=== PATIENT | female | born 1980 | race Caucasian/White ===

== ENCOUNTER 2018-02-01 18:24 | Observation (INO) ==
[2018-02-01] MEDS ORDERED: Furosemide 40 MG TABLET PO STA (19:37)
--- NOTE | 2018-02-01 19:48 | Emergency Department Note ---
Disposition Clinical Impression: Hypokalemia, Generalized weakness Disposition: Admitted As Inpatient Condition: Good Forms: ED Satisfaction Letter Extremity Problem HPI - General Chief complaint: ED Extremity Problem,Nontraumatic Stated complaint: "swelling in legs came by [id number]" Time Seen by Provider: 02/01/18 19:10 Source: patient, family Limitations: no limitations Nursing Notes Reviewed: Yes Vital Signs Reviewed: Yes - History of Present Illness HPI Narrative: Patient presents today for evaluation of increased swelling of the extremities including upper and lower extremities as well as generalized weakness and fatigue. She presents from the [facility] where she was recently placed secondary to probation. She is upset and anxious on evaluation secondary to stating that she does not take any recreational drugs and that her urine falsely test positive and is usually to clear secondary to her continued Lasix use. She denies shortness of breath or her chest pain. She states that she does have underlying anxiety and is felt that this is been getting worse and she has been at the [facility]. She is not given her medications for what she describes as an unknown reason but does not understand how the patient with her history of congestive heart failure to be allowed to not get her daily medicine. 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 Swelling started just after she missed her most recent medications. We will check some baseline labs labs and further evaluate. Pain Scale: 0 - Related Data Home Medications Medication Instructions Recorded Confirmed Carvedilol [Coreg] 9.375 mg PO BID 08/15/17 01/20/18 Furosemide [Lasix] 20 mg PO DAILY 08/15/17 01/20/18 Lisinopril [Zestril] 5 mg PO HS 08/15/17 01/20/18 Pregabalin [Lyrica] 150 mg PO BID 01/12/18 01/20/18 Trazodone HCl [Trazodone HCl] 100 mg PO DAILY 01/20/18 01/20/18 Previous Rx's Medication Instructions Recorded Acetaminophen/Butalbital/Caffe 1 - 2 each PO BID PRN #10 tablet 01/20/18 [Fioricet] Allergies Allergy/AdvReac Type Severity Reaction Status Date / Time Erythromycin Base Allergy Vomiting Verified 01/20/18 18:04 metoclopramide [From Reglan] Allergy See Verified 01/20/18 18:04 Comments Neomycin Allergy Vomiting Verified 01/20/18 18:04 captopril [From Capoten] AdvReac Difficulty Verified 01/20/18 18:04 Breathing ciprofloxacin AdvReac Nausea Verified 01/20/18 18:04 clarithromycin [From Biaxin] AdvReac Vomiting Verified 01/20/18 18:04 Iodinated Contrast- Oral and AdvReac Difficulty Verified 01/20/18 18:04 IV Dye Swallowing [Iodinated Contrast Media - Oral and] nitroglycerin AdvReac Difficulty Verified 01/20/18 18:04 Swallowing Review of Systems: CONSTITUTIONAL: Generalized weakness HEENT: Eyes: No visual changes. Ears, Nose, Throat: No hearing loss, difficulty talking or unable to swallow. SKIN: No rash or itching. CARDIOVASCULAR: No chest pain, chest pressure or chest discomfort. No palpitations or edema. RESPIRATORY: No shortness of breath, cough or sputum. GASTROINTESTINAL: No anorexia, nausea, vomiting or diarrhea. No abdominal pain or blood. GENITOURINARY: No burning on urination or hematuria. NEUROLOGICAL: No headache, dizziness, syncope, paralysis, ataxia, numbness or tingling in the extremities. No change in bowel or bladder control. MUSCULOSKELETAL: Increased swelling of the upper and lower extremities. No muscle pain, back pain, joint pain or stiffness. Past Medical History - Past Medical History Medical history: Reports: cardiomyopathy, migraine, other Surgical history: Reports: orthopedic, other, pacemaker/AICD, other Psychiatric history: Reports: anxiety, depression DIRECTOR OF GLOBAL TALENT history: Reports: no DIRECTOR OF GLOBAL TALENT history - Social History Smoking Status: Current every day smoker Smokeless Tobacco Status: No Alcohol use: Reports: none Drug use: Reports: none Physical Exam General appearance: NAD, conversant Eyes: anicteric sclerae, moist conjunctivae; no lid-lag; PERRL HENT: Atraumatic; oropharynx clear with moist mucous membranes Neck: Normal appearance; Trachea midline Chest: Symmetrical chest rise; No respiratory distress Cardiac: Regular rate and rhythm without murmur rub or gallop Lungs: Clear to auscultation bilaterally Extremities: +1 pitting edema to the upper and lower extremities. No significant tenderness to the posterior aspect of the legs. Skin: Normal temperature, turgor and texture; no rash, ulcers or subcutaneous nodules Psych: Appropriate mood and affect Neuro: Awake and alert - General Limitations: no limitations General appearance: alert, in no apparent distress Course - Reevaluation(s) Reevaluation #1: Critical lab reported a potassium of 2.4. Initial potassium of 40 mEq by mouth has been ordered. Patient will now get IV potassium as well as further laboratory investigation including magnesium. - Consultations Consultation #1: Discussed with hospitalist. Patient accepted for admission. Vital Signs Temperature 98.0 F 02/01/18 18:34 Pulse Rate 93 02/01/18 18:34 Respiratory Rate 20 02/01/18 18:34 Blood Pressure 144/86 02/01/18 18:34 O2 Sat by Pulse Oximetry 95 02/01/18 18:34 Temperature 98.0 F 02/01/18 18:34 Pulse Rate 93 02/01/18 18:34 Respiratory Rate 20 02/01/18 18:34 Blood Pressure 128/75 02/01/18 21:22 O2 Sat by Pulse Oximetry 95 02/01/18 18:34 Oxygen Delivery Oxygen Delivery Room Air Extremity Problem, Nontraumati - Medical Records Medical records reviewed: Yes I reviewed the patient's medical records. - Lab Data Lab results reviewed: Yes I reviewed the patient's lab results. Result diagrams: 02/01/18 20:46 Lab Results 02/01/18 Range/Units 20:46 Sodium 138 (136-145) mEq/L Potassium 2.4 L* (3.5-5.1) mEq/L Chloride 97 L (98-107) mEq/L Carbon Dioxide 33 H (23-29) mEq/L BUN 30 H (6-20) mg/dL Creatinine 1.01 (0.60-1.20) mg/dL Est GFR ( Amer) > 60 (> 60) Est GFR (Non-Af Amer) > 60 (> 60) BUN/Creatinine Ratio 30 H (6-26) Glucose 104 (70-105) mg/dL Calculated Osmolality 292 (280-300) Calcium 9.0 (8.6-10.3) mg/dL - Radiology Data Radiology results reviewed: Yes I reviewed the patient's radiology results. - EKG Data EKG attestation: Yes I reviewed and interpreted this EKG. EKG results narrative: EKG shows sinus rhythm with ventricular rate of 90. WA interval 169. QRS 96. QTC 427. Patient has no significant ST elevations or depressions. No previous EKG at this time for comparison.
[2018-02-01 21:20] LABS: BUN/Creatinine Ratio 30 (6-26); Blood Urea Nitrogen 30 mg/dL (6-20); Carbon Dioxide 33 mEq/L (23-29); Chloride 97 mEq/L (98-107); Glucose 104 mg/dL (70-105); Osmolality,Calculated 292 (280-300); Potassium 2.4 mEq/L (3.5-5.1); Sodium 138 mEq/L (136-145); eGFR For Non-African Americans > 60 (> 60)
[2018-02-01 21:58] LABS: Basophils % 0.5 %; Eosinophils # 0.3 K/mcL (0.0-0.6); Eosinophils % 4.2 %; Hematocrit 37.5 % (35.3-44.9); Hemoglobin 12.6 g/dL (11.5-15.4); Immature Granulocytes % 0.2 % (0-4); Lymphocytes # 2.3 K/mcL (0.6-4.6); Lymphocytes % 38.7 %; Mean Corpuscular HGB Conc 33.6 g/dL (31.6-35.5); Mean Corpuscular Hemoglobin 29.6 pg (28.0-33.3); Mean Platelet Volume 11.8 fL (9.4-12.4); Monocytes # 0.6 K/mcL (0.0-1.3); Monocytes % 9.7 %; Neutrophils # 2.8 K/mcL (1.6-8.9); Platelet Count 184 K/mcL (140-400); Red Blood Count 4.26 M/mcL (3.82-4.97); Red Cell Distribution Width 13.7 % (11.5-14.5); Segmented Neutrophils % 46.7 %
[2018-02-01 22:09] LABS: Magnesium 1.9 mg/dL (1.6-2.6); Troponin I < 0.03 ng/mL (< 0.04)
--- NOTE | 2018-02-02 00:19 | Internal Med History&Physical ---
Date of Encounter: 02/02/18 Time of Encounter: 00:10 Internal Medicine - H&P: HPI Chief complaint: Generalized swelling Admitted From: Emergency Dept Plans for Post Hospital Care: Home History of present illness: Ms. Barlow is a 37 year old female with past medical history of cardiomyopathy, rhabdomyosarcoma presented to [facility] ED complaining of generalized swelling of one day. She is on probation and is currently residing in a half-way that she moved to today. She stated that the people that run the home did not give her Lasix to her all day and over the course of the day she has noticed increase swelling on her upper and lower extremities. Her dry weight is 193 pounds which she was yesterday and today she is 203 pounds. Her PCP started her on 20mg potassium supplements last week when it was noticed her potassium was 2.8. She sees Jacklyn Banuelos SPLITTER MACHINE in the tire and tube repairer office who increased her lasix on Monday since she had been retaining fluid. She denies fever, chills, shortness of breath, chest pain, palpitations, abdominal pain, nausea, vomiting, dysuria. She chronically has orthopnea and paroxysmal nocturnal dyspnea. She quit smoking 2 weeks ago and she was smoking 5 cigarettes a day for 6years. Denied alcohol and drug use. She is a full code. 04/2017 TTE: EF 40-45%, mild mitral and tricuspid regurgitation. In the Ed, her potassium 2.4, magnesium 1.9, sodium 138, WBC 5.9, Hgb 12.6, creatinine 1.01, troponin negative. EKG: NSR HR 90, no ST changes, flattened T waves. She was given 40mg IV and PO potassium, lasix 40mg IV. Past Med Surg Social Fam HX - Past Medical History Attestation: Yes The following information was validated with the patient. 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 cardiomyopathy Psychiatric history: anxiety, depression - Past Surgical History Surgical History: orthopedic, other, pacemaker/AICD, other Additional surgical history: Left arm lymph nodes. Pace AED at age 19. Left ovary removed for cancer. Breast reduction. Endometreosis. pacemaker removed. Gallbladder removed - Social History Smoking Status: Former smoker Packs per day: 0.5 Smokeless Tobacco Status: No Alcohol use: none Drug use: none Internal Medicine - H&P: Meds Carvedilol [Coreg] 6.25 mg PO BID 08/15/17 [History] Lisinopril [Zestril] 5 mg PO HS 08/15/17 [History] Trazodone HCl [Trazodone HCl] 100 mg PO DAILY PRN 01/20/18 [History] Acetaminophen/Butalbital/Caffe [Fioricet] 1 tab PO DAILY PRN 02/01/18 [History] Furosemide [Lasix] 40 mg PO 1700,2100 02/01/18 [History] Furosemide [Lasix] 80 mg PO QAM 02/01/18 [History] Loratadine [Claritin] 10 mg PO DAILY 02/01/18 [History] Potassium Chloride [K-Tab ER] 20 meq PO DAILY 02/01/18 [History] 3 Allergy/AdvReac Type Severity Reaction Status Date / Time Erythromycin Base Allergy Vomiting Verified 01/20/18 18:04 metoclopramide [From Reglan] Allergy See Verified 01/20/18 18:04 Comments Neomycin Allergy Vomiting Verified 01/20/18 18:04 captopril [From Capoten] AdvReac Difficulty Verified 01/20/18 18:04 Breathing ciprofloxacin AdvReac Nausea Verified 01/20/18 18:04 clarithromycin [From Biaxin] AdvReac Vomiting Verified 01/20/18 18:04 Iodinated Contrast- Oral and AdvReac Difficulty Verified 01/20/18 18:04 IV Dye Swallowing [Iodinated Contrast Media - Oral and] nitroglycerin AdvReac Difficulty Verified 01/20/18 18:04 Swallowing All Systems PM: A 10-system review of systems was performed and is negative for pertinent findings except as documented above in the HPI. - Constitutional Constitutional: weight gain, no chills, no fever(s), no falls, no weakness - EENT Eyes: no change in vision - Cardiovascular Cardiovascular ROS IM: edema, orthopnea, paroxysmal nocturnal dyspnea, no chest pain, no diaphoresis, no dyspnea on exertion, no palpitations, no syncope - Respiratory Respiratory: no cough, no dyspnea, no wheezing - Gastrointestinal Gastrointestinal: no abdominal pain, no melena, no nausea, no vomiting - Musculoskeletal Musculoskeletal ROS IM: no arthralgias - Integumentary Integumentary IM: no erythema, no new lesions - Neurological Neurological ROS: headache(s), no dizziness - Psychiatric Psychiatric: no confusion - Endocrine Endocrine IM: no fatigue - Constitutional Vitals: Temp Pulse Resp BP Pulse Ox 97.6 F 79 16 120/91 99 02/01/18 23:18 02/01/18 23:18 02/01/18 23:18 02/01/18 23:18 02/01/18 23:18 General appearance: Present: A&O X 3, pleasant, no acute distress - Head Head exam: Present: atraumatic, normal inspection - Eye Eye exam: Present: normal appearance, conjuntiva pink - Respiratory Respiratory exam: Present: CTAB. Absent: rales, rhonchi, wheezes - Cardiovascular Cardiovascular exam: Present: RRR, +S1, +S2, systolic murmur - GI/Abdominal GI/Abdominal exam: Present: normal bowel sounds, soft. Absent: firm, guarding, tenderness - Expanded Lower Extremities Exam Lower Leg exam: Present: swelling (non pitting), tenderness (bilateral). Absent : ecchymosis, erythema, laceration - Neurological Exam Neurological exam: Present: alert, oriented X3 - Psychiatric Psychiatric exam: Present: normal affect, normal mood - Skin Skin exam: Present: dry, intact Internal Med - H&P Results - Labs CBC & Chem 7: 02/01/18 20:46 02/01/18 20:46 - Assessment and plan (1) Generalized edema Current Visit: Yes Status: Acute Assessment and plan: Generalized edema in legs and arms secondary to cardiomyopathy and she is on probation in a half-way and the people running it did not give all her doses of lasix. In ED lasix 40mg IV given. No shortness of breath, chest pain. Dry weight is 193lb and was that yesterday and today 203lb. She reported improvement of swelling upon my examination since receiving lasix in ED. On Monday her lasix doses and frequency was increased. troponin negative -will give 40mg IV lasix in AM -daily weights -monitor I&O -monitor renal function and electrolytes (2) Hypokalemia Current Visit: Yes Status: Acute Assessment and plan: hypokalemia secondary to diuretics. She was given 40mg IV and PO potassium in ED. -EKG: NSR HR 90, no ST changes, flattened T waves. 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 Follows with Kirsten Banuelos NP in the cardiology office. 04/2017 TTE: EF 40-45%, mild mitral and tricuspid regurgitation. Qualifiers: Cardiomyopathy type: other Qualified Code(s): I42.8 - Other cardiomyopathies (4) DVT prophylaxis Current Visit: Yes Status: Acute Assessment and plan: ambulate TID - Time Spent With Patient Total time spent is greater than 50% in coordination of care (as documented) at patient's floor/unit and/or counseling patient:
[2018-02-02] MEDS ORDERED: Naloxone 0.4 MG/ML INJ IVP PRN (00:20)
[2018-02-02 05:35] LABS: BUN/Creatinine Ratio 27 (6-26); Blood Urea Nitrogen 24 mg/dL (6-20); Calcium 8.4 mg/dL (8.6-10.3); Carbon Dioxide 32 mEq/L (23-29); Chloride 102 mEq/L (98-107); Glucose 99 mg/dL (70-105); Magnesium 1.9 mg/dL (1.6-2.6); Osmolality,Calculated 296 (280-300); Potassium 3.1 mEq/L (3.5-5.1); Sodium 141 mEq/L (136-145); eGFR For Non-African Americans > 60 (> 60)
[2018-02-02] MEDS: Ibuprofen 600 MG TABLET PO PRN ×2 (08:47→17:43)
[2018-02-02] MEDS ORDERED: Furosemide 40 MG/4 ML VIAL IVP SCH (09:00)
[2018-02-02] MEDS: Acetaminophen 325 MG TABLET PO PRN (12:13)
[2018-02-02 15:49] LABS: Albumin 3.4 g/dL (3.5-5.7); Albumin/Globulin Ratio 1.1 (1.1-2.2); Bilirubin,Direct 0.1 mg/dL (0.0-0.2); Bilirubin,Indirect 0.2 mg/dL (0.0-1.2); Bilirubin,Total 0.3 mg/dL (0.3-1.0); Globulin 3.2 g/dL (2.4-3.5); Total Protein 6.6 g/dL (6.4-8.9)
--- NOTE | 2018-02-02 16:35 | Electrocardiograph Report ---
[place] [id number] Test Date: 2018-02-01 Pat Name: Sari Barlow Department: 104 Room: [facility] Gender: F Parent Aide: : 1980 Requested By: Nomi Kaminski Order Number: [id number] Reading MD: Nash Solano Measurements Intervals [place] Rate: 90 P: 49 NM: 169 QRS: 20 QRSD: 96 T: 35 QT: 379 QTc: 427 Interpretive Statements SINUS RHYTHM POSSIBLE LEFT ATRIAL ENLARGEMENT NONSPECIFIC T-WAVE ABNORMALITY Electronically Signed On 02-02-2018 16:33:46 EDT by Nash Solano
[2018-02-03 04:31] LABS: Bilirubin,Urine Negative (Negative); Blood,Urine Negative (Negative); Clarity,Urine Clear (Clear); Color,Urine Yellow (Yellow); Glucose,Urine (UA) Normal (Normal); Ketones,Urine Negative (Negative); Leukocyte Esterase,Urine Negative (Negative); Nitrite,Urine Negative (Negative); PH,Urine 6.5 pH Units (5.0-8.0); Protein,Urine Negative (Neg-Trace); Specific Gravity,Urine 1.019 (1.010-1.025); Urobilinogen,Urine Normal (Normal)
[2018-02-03 06:15] LABS: BUN/Creatinine Ratio 26 (6-26); Blood Urea Nitrogen 23 mg/dL (6-20); Calcium 8.9 mg/dL (8.6-10.3); Carbon Dioxide 30 mEq/L (23-29); Chloride 105 mEq/L (98-107); Glucose 96 mg/dL (70-105); Osmolality,Calculated 294 (280-300); Potassium 3.8 mEq/L (3.5-5.1); Sodium 140 mEq/L (136-145); eGFR For Non-African Americans > 60 (> 60)
[2018-02-03] MEDS: Ibuprofen 600 MG TABLET PO PRN (06:17)
[2018-02-03] MEDS ORDERED: metOLazone 5 MG TABLET PO SCH (09:00)
[2018-02-03] MEDS ORDERED: Furosemide 40 MG TABLET PO SCH (09:00)
--- NOTE | 2018-02-03 10:33 | Discharge Summary ---
- NOTES TO OUTPATIENT PROVIDER Notes to Outpatient Provider: Follow with shield operator for dose adjustment of diuretic-in 1 week. Follow-up with PCP 2- 3 days. BMP on Monday Date of Encounter: 02/03/18 Time of Encounter: 11:11 - Discharge Diagnosis (1) Generalized edema Priority: Primary Status: Acute Assessment and Plan: Significant improvement . Initially he got treated with IV Lasix then change to oral Lasix and started Zaroxolyn 5 mg daily. Potassium 20 mEq 3 times in a day was also given and that improved level significantly. Generalized edema in legs and arms secondary to cardiomyopathy and she is on probation in a snf and the people running it did not give all her doses of lasix. I discussed the discharge plan with on-call shield operator Dr. Chaitanya hua about discharge medication and after discussing in length we decided to keep her regime simple and advised to resume home dose of Lasix but increase potassium 20 mEq twice a day with repeat BMP on Monday and follow report with PCP Further diuretic adjustment as per cardiology advice. Follow with cardiology within 1 week. Follow-up PCP in 2-3 days (2) Hypokalemia Priority: Primary Status: Acute Assessment and Plan: Improved. hypokalemia secondary to diuretics. 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 Follows with Kirsten Banuelos NP in the cardiology office. 04/2017 TTE: EF 40-45%, mild mitral and tricuspid regurgitation. Qualifiers: Cardiomyopathy type: other Qualified Code(s): I42.8 - Other cardiomyopathies Hospital course: Ms. Barlow is a 37 year old female with history of cardiomyopathy got admitted for anasarca as she missed diuretic for 2 days. In the hospital she responded well to the treatment. Discussed discharge plan with on-call shield operator. Patient is clinically stable with significant reduction in pedal edema and normal potassium level. Will discharge patient on home dose of Lasix and increase KCl 20 mEq twice a day for a few days and repeat BMP on Monday for follow-up with PCP into 3 days for further adjustment in potassium and diuretic level. Patient is discharged back to snf under stable condition. Please see details in diagnosis section. Discharge discussed with: patient - Time Spent with Patient Total time spent providing and/or coordinating discharge services: - Discharge Medications Prescriptions: metOLazone [Zaroxolyn] 5 mg PO DAILY #30 tablet Home Medications: Carvedilol [Coreg] 6.25 mg PO BID 08/15/17 [History] Lisinopril [Zestril] 5 mg PO HS 08/15/17 [History] Trazodone HCl [Trazodone HCl] 100 mg PO DAILY PRN 01/20/18 [History] Acetaminophen/Butalbital/Caffe [Fioricet] 1 tab PO DAILY PRN 02/01/18 [History] Furosemide [Lasix] 40 mg PO 1700,2100 02/01/18 [History] Furosemide [Lasix] 80 mg PO QAM 02/01/18 [History] Loratadine [Claritin] 10 mg PO DAILY 02/01/18 [History] Potassium Chloride [K-Tab ER] 20 meq PO DAILY 02/01/18 [History] metOLazone [Zaroxolyn] 5 mg PO DAILY #30 tablet 02/03/18 [Rx] Allergies/Adverse Reactions: 3 Allergy/AdvReac Type Severity Reaction Status Date / Time Erythromycin Base Allergy Vomiting Verified 01/20/18 18:04 metoclopramide [From Reglan] Allergy See Verified 01/20/18 18:04 Comments Neomycin Allergy Vomiting Verified 01/20/18 18:04 captopril [From Capoten] AdvReac Difficulty Verified 01/20/18 18:04 Breathing ciprofloxacin AdvReac Nausea Verified 01/20/18 18:04 clarithromycin [From Biaxin] AdvReac Vomiting Verified 01/20/18 18:04 Iodinated Contrast- Oral and AdvReac Difficulty Verified 01/20/18 18:04 IV Dye Swallowing [Iodinated Contrast Media - Oral and] nitroglycerin AdvReac Difficulty Verified 01/20/18 18:04 Swallowing Date of admission: 02/01/18 22:47 Primary care physician: Greg Ackerman CNP - Constitutional Vitals: Temp Pulse Resp BP Pulse Ox 98.4 F 79 16 134/89 99 02/03/18 07:28 02/03/18 07:28 02/03/18 07:28 02/03/18 07:28 07/28/18 07:28 General appearance: Present: A&O X 3, pleasant, no acute distress Exam: General appearance: No acute distress, A&O X 3 Head exam: Atraumatic Eye exam: EOMI, PERRLA ENT exam: Moist oral mucosa Neck nontender, supple Respiratory exam: Clear to auscultation bilaterally Cardiovascular exam: Regular rate and rhythm, no systolic murmur Abdominal exam: Soft, nontender, nondistended, positive bowel sounds Extremities exam: No calf tenderness, +1 pedal edema Present: Skin-no rash, warm, dry, intact Neurological exam: Alert, awake, oriented 3, CN II-XII intact, no focal deficits. No facial droop. Normal speech. Normal gait. - Patient Status Disposition: Transfer Other Condition: Good Overall status at discharge: patient is back to baseline - Discharge Instructions Instructions: Metolazone (By mouth), Hypokalemia (DC) Follow Up With: Greg Ackerman, ANIMAL HUMANE AGENT SUPERVISOR [Primary Care Provider] - - Diet and Activity Activity: increase activity as tolerated Diet: low fat, low cholesterol, low salt diet
[2018-02-03 10:46] VITALS: BP 128/81
[2018-02-03] MEDS: Acetaminophen 325 MG TABLET PO PRN (11:52)
== END 2018-02-03 12:55 | disposition other institution (70) ==
LOC: EMEROO 18:24 → 2ANU 18:24 → SUATTDRO 22:47 → 2ANU 23:12
PROVIDERS: ADMIT Family Medicine; ATTEND Internal Medicine

== ENCOUNTER 2018-03-14 12:23 | Inpatient (IN) ==
--- NOTE | 2018-03-14 12:34 | Emergency Department Note ---
Disposition Clinical Impression: Hypokalemia, Syncope and collapse Facial contusion Qualifiers: Encounter type: initial encounter Qualified Code(s): S00.83XA - Contusion of other part of head, initial encounter Disposition: Admitted As Inpatient Condition: Fair General Adult HPI - General Chief complaint: ED Syncope Stated complaint: Syncopal Episode Time Seen by Provider: 03/14/18 12:26 Source: patient, EMS Mode of arrival: EMS Limitations: no limitations Nursing Notes Reviewed: Yes Vital Signs Reviewed: Yes - History of Present Illness HPI Narrative: 37-year-old female with significant past medical history of cardiomyopathy and history of hypokalemia presenting to the emergency department with chief complaint of a syncopal episode. According to the patient she was seen being at a bus stop when she passed out. This was witnessed by 2 other bystanders. He states she was out for approximately 1 minute. Patient denies any shortness of breath, dizziness or chest pain prior to syncopized and. At this time patient has no chest pain, dizziness, shortness of breath or other symptoms. Patient states she currently takes to diuretics 1 including Lasix, the other she is on aware of the name. She states she has had hypokalemia in the past and is concerned that this is what is going on again. Any recent illnesses or fevers. - Related Data Home Medications Medication Instructions Recorded Confirmed Carvedilol [Coreg] 9.375 mg PO BID 08/15/17 03/14/18 Lisinopril [Zestril] 5 mg PO HS 08/15/17 03/14/18 Trazodone HCl 100 mg PO DAILY PRN 01/20/18 03/14/18 Acetaminophen/Butalbital/Caffe 1 tab PO DAILY PRN 02/01/18 03/14/18 [Fioricet] Furosemide [Lasix] 40 mg PO 1700,2100 02/01/18 03/14/18 Furosemide [Lasix] 80 mg PO QAM 02/01/18 03/14/18 Loratadine [Claritin] 10 mg PO DAILY 02/01/18 03/14/18 Pregabalin [Lyrica] 150 mg PO BID 03/14/18 03/14/18 Previous Rx's Medication Instructions Recorded Potassium Chloride [K-Tab ER] 20 meq PO DAILY #30 tablet.er 02/03/18 Allergies Allergy/AdvReac Type Severity Reaction Status Date / Time Erythromycin Base Allergy Vomiting Verified 01/20/18 18:04 metoclopramide [From Reglan] Allergy See Verified 01/20/18 18:04 Comments Neomycin Allergy Vomiting Verified 01/20/18 18:04 captopril [From Capoten] AdvReac Difficulty Verified 01/20/18 18:04 Breathing ciprofloxacin AdvReac Nausea Verified 01/20/18 18:04 clarithromycin [From Biaxin] AdvReac Vomiting Verified 01/20/18 18:04 Iodinated Contrast- Oral and AdvReac Difficulty Verified 01/20/18 18:04 IV Dye Swallowing [Iodinated Contrast Media - Oral and] nitroglycerin AdvReac Difficulty Verified 01/20/18 18:04 Swallowing All systems ED: reviewed and negative except as stated. Constitutional: Denies: fever, chills Eyes: Reports: as per HPI ENT ED: Reports: as per HPI Cardiovascular: Denies: chest pain, palpitations, dyspnea on exertion Respiratory: Denies: cough, dyspnea, wheezes Gastrointestinal: Denies: abdominal pain, nausea, vomiting Genitourinary: Reports: as per HPI Musculoskeletal: Reports: as per HPI Integumentary: Reports: as per HPI Neurological: Denies: weakness, numbness, paresthesias Psychiatric: Reports: as per HPI Endocrine: Reports: as per HPI Hematological/Lymphatic: Reports: as per HPI Allergic/Immunologic: Reports: as per HPI Past Medical History - Past Medical History Attestation: Yes The following information was validated with the patient. 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 Absent: scleral icterus, conjunctival injection - ENT ENT exam: normal exam, mucous membranes moist - Neck Neck exam: Present: normal inspection, full ROM. Absent: tenderness, meningismus - Chest Chest inspection: Present: normal inspection, symmetric chest wall rise. Absent : tenderness, rash - Respiratory Respiratory exam: Present: normal lung sounds bilaterally. Absent: respiratory distress, wheezes - Cardiovascular Cardiovascular exam: Present: regular rate, normal rhythm, normal heart sounds - Abdominal Exam Abdominal exam: Present: soft, Non-Tender. Absent: distention, guarding, rebound - Extremities Exam Extremities exam: Present: normal inspection, full ROM - Neurological Exam Neurological exam: Present: alert, oriented X3, normal gait - Psychiatric Psychiatric exam: Present: normal affect, normal mood - Skin Skin exam: Present: warm, intact Course Course Narrative: 37-year-old female presenting to the emergency department with chief complaint of syncope. Patient is alert and oriented 3 in the room with stable vital signs at this time. Due to patient's history of hypokalemia and syncope we will obtain basic laboratory analysis including EKG, troponin, CBC, CMP and CT of the head. Disposition pending results. Patient agrees with this plan. - Reevaluation(s) Reevaluation #1: Patient CT of the head within normal limits. BMP shows hypokalemia at 2.2. Magnesium within normal limits. We will replete the patient through peripheral IV and oral. At this time will plan to admit the patient for further evaluation for her hypokalemia and syncope. Patient is alert and oriented times three with stable vital signs the patient agrees with this plan. I spoke with the hospitalist occupational therapy co director Dr. Valadez who agrees to accept the patient at this time. Vital Signs Temperature 98.2 F 03/14/18 12:27 Pulse Rate 95 03/14/18 12:27 Respiratory Rate 16 03/14/18 12:27 Blood Pressure 133/80 03/14/18 12:27 O2 Sat by Pulse Oximetry 95 03/14/18 12:27 Temperature 98.2 F 03/14/18 12:27 Pulse Rate 95 03/14/18 12:27 Respiratory Rate 16 03/14/18 12:27 Blood Pressure 133/80 03/14/18 12:27 O2 Sat by Pulse Oximetry 95 03/14/18 12:27 Oxygen Delivery Oxygen Delivery Room Air Medical Decision Making - Lab Data Result diagrams: 03/14/18 12:49 03/14/18 12:49 Lab Results 03/14/18 03/14/18 03/14/18 Range/Units 12:35 12:49 12:49 WBC 9.4 (4.3-11.1) K/mcL RBC 4.96 (3.82-4.97) M/mcL Hgb 14.8 (11.5-15.4) g/dL Hct 43.1 (35.3-44.9) % MCV 86.9 (83.0-100.0) fL MCH 29.8 (28.0-33.3) pg MCHC 34.3 (31.6-35.5) g/dL RDW 13.8 (11.5-14.5) % Plt Count 221 (140-400) K/mcL MPV 10.8 (9.4-12.4) fL Immature Gran % 0.3 (0-4) % Seg Neutrophils % 78.9 % Lymphocytes % 17.5 % Monocytes % 2.8 % Eosinophils % 0.4 % Basophils % 0.1 % Neutrophils # 7.5 (1.6-8.9) K/mcL Lymphocytes # 1.7 (0.6-4.6) K/mcL Monocytes # 0.3 (0.0-1.3) K/mcL Eosinophils # 0.0 (0.0-0.6) K/mcL Basophils # 0.0 (0.0-0.2) K/mcL Sodium 137 (136-145) mEq/L Potassium 2.2 L* (3.5-5.1) mEq/L Chloride 86 L (98-107) mEq/L Carbon Dioxide 42 H* (23-29) mEq/L BUN 37 H (6-20) mg/dL Creatinine 0.94 (0.60-1.20) mg/dL Est GFR ( Amer) > 60 (> 60) Est GFR (Non-Af Amer) > 60 (> 60) BUN/Creatinine Ratio 39 H (6-26) Glucose 117 H (70-105) mg/dL POC Glucose 126 H (70-99) mg/dL Calculated Osmolality 294 (280-300) Calcium 9.2 (8.6-10.3) mg/dL Magnesium 1.8 (1.6-2.6) mg/dL Total Bilirubin 0.9 (0.3-1.0) mg/dL AST 197 H (13-39) Units/L ALT 137 H (7-52) Units/L Alkaline Phosphatase 81 (34-104) Units/L Troponin I < 0.03 (< 0.04) ng/mL Serum Total Protein 7.2 (6.4-8.9) g/dL Albumin 4.0 (3.5-5.7) g/dL Globulin 3.2 (2.4-3.5) g/dL Albumin/Globulin Ratio 1.3 (1.1-2.2) - EKG Data EKG #1 EKG attestation: Yes I reviewed and interpreted this EKG. EKG results narrative: Sinus rhythm. 97 beats for minute. WA interval 166, QRS 95, QTC 467. No sign of acute ST segment elevation or ischemia. Compared to previous EKG completed on 02/01/2018 no significant changes noted
[2018-03-14 13:01] LABS: Basophils % 0.1 %; Eosinophils % 0.4 %; Hematocrit 43.1 % (35.3-44.9); Hemoglobin 14.8 g/dL (11.5-15.4); Immature Granulocytes % 0.3 % (0-4); Lymphocytes % 17.5 %; Mean Corpuscular HGB Conc 34.3 g/dL (31.6-35.5); Mean Corpuscular Hemoglobin 29.8 pg (28.0-33.3); Mean Corpuscular Volume 86.9 fL (83.0-100.0); Mean Platelet Volume 10.8 fL (9.4-12.4); Monocytes % 2.8 %; Platelet Count 221 K/mcL (140-400); Red Blood Count 4.96 M/mcL (3.82-4.97); Red Cell Distribution Width 13.8 % (11.5-14.5); Segmented Neutrophils % 78.9 %
[2018-03-14 13:02] LABS: Lymphocytes # 1.7 K/mcL (0.6-4.6); Monocytes # 0.3 K/mcL (0.0-1.3); Neutrophils # 7.5 K/mcL (1.6-8.9)
[2018-03-14 13:28] LABS: Troponin I < 0.03 ng/mL (< 0.04)
[2018-03-14 13:43] LABS: Alanine Aminotransferase 137 Units/L (7-52); Albumin/Globulin Ratio 1.3 (1.1-2.2); Alkaline Phosphatase 81 Units/L (34-104); Aspartate Amino Transferase 197 Units/L (13-39); BUN/Creatinine Ratio 39 (6-26); Bilirubin,Total 0.9 mg/dL (0.3-1.0); Blood Urea Nitrogen 37 mg/dL (6-20); Calcium 9.2 mg/dL (8.6-10.3); Carbon Dioxide 42 mEq/L (23-29); Chloride 86 mEq/L (98-107); Globulin 3.2 g/dL (2.4-3.5); Glucose 117 mg/dL (70-105); Osmolality,Calculated 294 (280-300); Potassium 2.2 mEq/L (3.5-5.1); Sodium 137 mEq/L (136-145); Total Protein 7.2 g/dL (6.4-8.9); eGFR For Non-African Americans > 60 (> 60)
[2018-03-14 14:22] LABS: Magnesium 1.8 mg/dL (1.6-2.6)
--- NOTE | 2018-03-14 14:41 | Emergency Department Note ---
Disposition Clinical Impression: Hypokalemia, Syncope and collapse Facial contusion Qualifiers: Encounter type: initial encounter Qualified Code(s): S00.83XA - Contusion of other part of head, initial encounter Disposition: Admitted As Inpatient Referrals: Greg Ackerman CNP [Primary Care Provider] - Forms: ED Satisfaction Letter Fall HPI - General Chief Complaint: ED Fall Stated Complaint: Syncopal Episode Time Seen by Provider: 03/14/18 12:26 Source: patient, EMS Mode of arrival: EMS - Related Data Home Medications Medication Instructions Recorded Confirmed Carvedilol [Coreg] 9.375 mg PO BID 08/15/17 03/14/18 Lisinopril [Zestril] 5 mg PO HS 08/15/17 03/14/18 Trazodone HCl 100 mg PO DAILY PRN 01/20/18 03/14/18 Acetaminophen/Butalbital/Caffe 1 tab PO DAILY PRN 02/01/18 03/14/18 [Fioricet] Furosemide [Lasix] 40 mg PO 1700,2100 02/01/18 03/14/18 Furosemide [Lasix] 80 mg PO QAM 02/01/18 03/14/18 Loratadine [Claritin] 10 mg PO DAILY 02/01/18 03/14/18 Pregabalin [Lyrica] 150 mg PO BID 03/14/18 03/14/18 Previous Rx's Medication Instructions Recorded Potassium Chloride [K-Tab ER] 20 meq PO DAILY #30 tablet.er 02/03/18 Allergies Allergy/AdvReac Type Severity Reaction Status Date / Time Erythromycin Base Allergy Vomiting Verified 01/20/18 18:04 metoclopramide [From Reglan] Allergy See Verified 01/20/18 18:04 Comments Neomycin Allergy Vomiting Verified 01/20/18 18:04 captopril [From Capoten] AdvReac Difficulty Verified 01/20/18 18:04 Breathing ciprofloxacin AdvReac Nausea Verified 01/20/18 18:04 clarithromycin [From Biaxin] AdvReac Vomiting Verified 01/20/18 18:04 Iodinated Contrast- Oral and AdvReac Difficulty Verified 01/20/18 18:04 IV Dye Swallowing [Iodinated Contrast Media - Oral and] nitroglycerin AdvReac Difficulty Verified 01/20/18 18:04 Swallowing Constitutional: Denies: fever, chills Eyes: Reports: as per HPI ENT ED: Reports: as per HPI Cardiovascular: Denies: chest pain, palpitations, dyspnea on exertion Respiratory: Denies: cough, dyspnea, wheezes Gastrointestinal: Denies: abdominal pain, nausea, vomiting Genitourinary: Reports: as per HPI Musculoskeletal: Reports: as per HPI Integumentary: Reports: as per HPI Neurological: Denies: weakness, numbness, paresthesias Psychiatric: Reports: as per HPI Endocrine: Reports: as per HPI Hematological/Lymphatic: Reports: as per HPI Allergic/Immunologic: Reports: as per HPI Fall PMH - Past Medical History Medical history: Reports: cardiomyopathy, migraine, other Surgical history: Reports: orthopedic, other, pacemaker/AICD, other Psychiatric history: Reports: anxiety, depression 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: Reports: no 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 - Social History Smoking Status: Former smoker Alcohol use: Reports: none Drug use: Reports: none Physical Exam - General Limitations: no limitations General appearance: alert, in no apparent distress Course Vital Signs Temperature 98.2 F 03/14/18 12:27 Pulse Rate 95 03/14/18 12:27 Respiratory Rate 16 03/14/18 12:27 Blood Pressure 133/80 03/14/18 12:27 O2 Sat by Pulse Oximetry 95 03/14/18 12:27 Temperature 98.2 F 03/14/18 12:27 Pulse Rate 95 03/14/18 12:27 Respiratory Rate 16 03/14/18 12:27 Blood Pressure 133/80 03/14/18 12:27 O2 Sat by Pulse Oximetry 95 03/14/18 12:27 Oxygen Delivery Oxygen Delivery Room Air Fall - Lab Data Result diagrams: 03/14/18 12:49 03/14/18 12:49 Lab Results 03/14/18 03/14/18 03/14/18 Range/Units 12:35 12:49 12:49 WBC 9.4 (4.3-11.1) K/mcL RBC 4.96 (3.82-4.97) M/mcL Hgb 14.8 (11.5-15.4) g/dL Hct 43.1 (35.3-44.9) % MCV 86.9 (83.0-100.0) fL MCH 29.8 (28.0-33.3) pg MCHC 34.3 (31.6-35.5) g/dL RDW 13.8 (11.5-14.5) % Plt Count 221 (140-400) K/mcL MPV 10.8 (9.4-12.4) fL Immature Gran % 0.3 (0-4) % Seg Neutrophils % 78.9 % Lymphocytes % 17.5 % Monocytes % 2.8 % Eosinophils % 0.4 % Basophils % 0.1 % Neutrophils # 7.5 (1.6-8.9) K/mcL Lymphocytes # 1.7 (0.6-4.6) K/mcL Monocytes # 0.3 (0.0-1.3) K/mcL Eosinophils # 0.0 (0.0-0.6) K/mcL Basophils # 0.0 (0.0-0.2) K/mcL Sodium 137 (136-145) mEq/L Potassium 2.2 L* (3.5-5.1) mEq/L Chloride 86 L (98-107) mEq/L Carbon Dioxide 42 H* (23-29) mEq/L BUN 37 H (6-20) mg/dL Creatinine 0.94 (0.60-1.20) mg/dL Est GFR ( Amer) > 60 (> 60) Est GFR (Non-Af Amer) > 60 (> 60) BUN/Creatinine Ratio 39 H (6-26) Glucose 117 H (70-105) mg/dL POC Glucose 126 H (70-99) mg/dL Calculated Osmolality 294 (280-300) Calcium 9.2 (8.6-10.3) mg/dL Magnesium 1.8 (1.6-2.6) mg/dL Total Bilirubin 0.9 (0.3-1.0) mg/dL AST 197 H (13-39) Units/L ALT 137 H (7-52) Units/L Alkaline Phosphatase 81 (34-104) Units/L Troponin I < 0.03 (< 0.04) ng/mL Serum Total Protein 7.2 (6.4-8.9) g/dL Albumin 4.0 (3.5-5.7) g/dL Globulin 3.2 (2.4-3.5) g/dL Albumin/Globulin Ratio 1.3 (1.1-2.2) Critical Care Time Critical Care Time: No Attestation Statement - Attestation Attestation: I examined this patient and my medical decision-making was reviewed with the Resident Physician. I agree with the documented findings, disposition and treatment plan as described except to the extent set forth below. 37-year-old female presents emergency room for syncope. She passed out at the bus stop. She hit her face. CT head was negative. Her workup here revealed hypokalemia. Patient has a history of hypokalemia. She is on diuretics. Patient's potassium was 2.2. Feel patient needs to see nephrology to get her potassium evaluated. This is somewhat of a chronic ongoing problem for her now. However, she is never had any syncopal episode with the hypokalemia. Her cardiac workup appears unremarkable. EKG negative. Troponin normal. Chest x-ray negative. CT head negative. Patient will need to be admitted for IV supplementation and observation for workup of syncope and hypokalemia.
[2018-03-14] MEDS ORDERED: Potassium Chloride Elixir 20 MEQ/15 ML UDC PO ONE (15:00)
[2018-03-14] MEDS ORDERED: Naloxone 0.4 MG/ML INJ IVP PRN (15:23)
[2018-03-14] MEDS ORDERED: 0.9 % Sodium Chloride w KCl 20 MEQ/1,000 ML MLS IVC SCH (15:30)
--- NOTE | 2018-03-14 18:18 | Internal Med History&Physical ---
Date of Encounter: 03/14/18 Time of Encounter: 18:18 Internal Medicine - H&P: HPI Chief complaint: severe hypokalemia. syncope Admitted From: Home Plans for Post Hospital Care: Home History of present illness: Ms. 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 Patient presented to the emergency room following a syncopal episode. Patient reports that around 11:45 she was having chest pain, which she described as 5/ 10 across her chest, associated with palpitation. She reports that she lost consciousness suddenly, and was told that she was out for about 1-1/2 minute. She denies lightheadedness, dizziness, blurry vision, before the syncopal episode. She also denies seizure-like activity. Denies nausea, vomiting or headache following the syncope. Patient was brought to the emergency room and and her potassium level were found to be severely low for which the medicine team was called for admission. During my evaluation patient denied chest pain, palpitation. Past Med Surg Social Fam HX - Past Medical History Medical history: cardiomyopathy, migraine, other Additional medical history: rhabdomyosarcoma-radiation therapy. cardiomyopathy Psychiatric history: anxiety, depression - Past Surgical History Surgical History: cholecystectomy, hysterectomy, pacemaker/AICD, other Additional surgical history: Lymphnodes removed, rabomyocarcoma at 5 years old - Social History Smoking Status: Former smoker Smokeless Tobacco Status: No Alcohol use: none Drug use: none - Family History Mother Hx Family Endocrine Disorder: Yes (DM) Internal Medicine - H&P: Meds Carvedilol [Coreg] 9.375 mg PO BID 08/15/17 [History] Lisinopril [Zestril] 5 mg PO HS 08/15/17 [History] Trazodone HCl 100 mg PO DAILY PRN 01/20/18 [History] Acetaminophen/Butalbital/Caffe [Fioricet] 1 tab PO DAILY PRN 02/01/18 [History] Furosemide [Lasix] 40 mg PO 1700,2100 02/01/18 [History] Furosemide [Lasix] 80 mg PO QAM 02/01/18 [History] Loratadine [Claritin] 10 mg PO DAILY 02/01/18 [History] Potassium Chloride [K-Tab ER] 20 meq PO DAILY #30 tablet.er 02/03/18 [Rx] Pregabalin [Lyrica] 150 mg PO BID 03/14/18 [History] 3 Allergy/AdvReac Type Severity Reaction Status Date / Time Erythromycin Base Allergy Vomiting Verified 01/20/18 18:04 metoclopramide [From Reglan] Allergy See Verified 01/20/18 18:04 Comments Neomycin Allergy Vomiting Verified 01/20/18 18:04 captopril [From Capoten] AdvReac Difficulty Verified 01/20/18 18:04 Breathing ciprofloxacin AdvReac Nausea Verified 01/20/18 18:04 clarithromycin [From Biaxin] AdvReac Vomiting Verified 01/20/18 18:04 Iodinated Contrast- Oral and AdvReac Difficulty Verified 01/20/18 18:04 IV Dye Swallowing [Iodinated Contrast Media - Oral and] nitroglycerin AdvReac Difficulty Verified 01/20/18 18:04 Swallowing All Systems PM: A 10-system review of systems was performed and is negative for pertinent findings except as documented above in the HPI. - Constitutional Constitutional: no chills, no lethargy - EENT Eyes: no change in vision, no photophobia Nose, mouth and throat: no change in voice - Cardiovascular Cardiovascular ROS IM: chest pain, palpitations, no diaphoresis, no dyspnea, no dyspnea on exertion, no edema, no lightheadedness, no paroxysmal nocturnal dyspnea - Respiratory Respiratory: no cough, no dyspnea, no wheezing, no pain on inspiration - Gastrointestinal Gastrointestinal: no abdominal pain, no bloating, no change in bowel habits, no dysphagia, no fecal incontinence, no melena, no nausea, no vomiting - Genitourinary Genitourinary: no change in urinary stream, no difficulty urinating, no difficulty voiding, no dysuria, no hematuria, no nocturia - Musculoskeletal Musculoskeletal ROS IM: no muscle cramps, no neck pain, no stiffness - Neurological Neurological ROS: no abnormal speech, no burning sensations, no dizziness, no lack of coordination, no loss of vision - Endocrine Endocrine IM: no cold intolerance, no flushing, no polyuria - Hematologic/Lymphatic Hematologic/Lymphatic: no easy bleeding, no easy bruising - Allergic/Immunologic Allergic/Immunologic: no wheezing - Constitutional Vitals: Temp Pulse Resp BP Pulse Ox 98.2 F 95 16 118/81 95 03/14/18 12:27 03/14/18 12:27 03/14/18 15:53 03/14/18 15:53 03/14/18 12:27 Exam: General: Patient is alert, oriented, no acute distress Head: atraumatic, normocephalic, dried blood in the left nostril ENT: mucous membranes moist Neck: normal inspection, trachea midline, full ROM, Respiratory: Good respiratory effort. Clear to auscultation bilaterally, no wheezing, no crackles or rales in the posterior lung gibbs Cardiovascular: Normal s1 and s2 No rubs, gallops, or murmors. Abdomen: Bowel sounds present normoactive x-4 quadrants. Abdomen is soft, nondistended. No guarding or rebound. 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 Neuro: Alert and oriented x4. Cranial nerves 2-12 is intact. Psych: Patient's affect is normal Internal Med - H&P Results - Labs CBC & Chem 7: 03/14/18 12:49 03/14/18 12:49 - Assessment and plan (1) Hypokalemia Current Visit: Yes Status: Acute Assessment and plan: Severe hypokalemia. Possibly due to diuresis, Patient on Lasix. As per patient and she is on Lasix 4 times a day. Plan: - Admit patient to the hospital - Telemetry monitoring - We will replace electrolyte - Normal saline with 20 mEq of potassium 1 L - hold Lasix - Urine electrolytes (2) Syncope and collapse Current Visit: Yes Status: Acute Assessment and plan: Possible secondary to electrolyte imbalance. Plan: - Continue telemetry monitoring - will evaluate for orthostatic hypotension (3) Facial contusion Current Visit: Yes Status: Acute Assessment and plan: Following a syncopal episode. Head CT done: No acute intracranial abnormality. No evidence of facial swelling. Plan: - Pain control with tramadol 50 mg 3 times a day when necessary Qualifiers: Encounter type: initial encounter Qualified Code(s): S00.83XA - Contusion of other part of head, initial encounter (4) Cardiomyopathy Current Visit: No Status: Chronic Assessment and plan: Patient has a history of cardiomyopathy. Last 2-D echo ejection fraction of 45-50%. No signs of volume overload. No lower extremity edema. No orthopnea, no crackles on auscultation. Plan: - We will hold Lasix, for now - Continue carvedilol 6.25 mg twice a day and lisinopril 5 mg daily Qualifiers: Cardiomyopathy type: other Qualified Code(s): I42.8 - Other cardiomyopathies (5) DVT prophylaxis Current Visit: Yes Status: Acute Assessment and plan: Chemical DVT prophylaxis with heparin 5000 units subcutaneous every 12 hours - Time Spent With Patient Total time spent is greater than 50% in coordination of care (as documented) at patient's floor/unit and/or counseling patient: Greater than 35 minutes
[2018-03-14] MEDS ORDERED: traMADol 50 MG TABLET PO PRN (18:52)
[2018-03-14] MEDS: Pregabalin 75 MG CAPSULE PO SCH (20:22)
[2018-03-14 23:48] LABS: Basophils % 0.1 %; Eosinophils # 0.1 K/mcL (0.0-0.6); Eosinophils % 1.8 %; Hematocrit 37.5 % (35.3-44.9); Immature Granulocytes % 0.3 % (0-4); Lymphocytes # 1.6 K/mcL (0.6-4.6); Lymphocytes % 20.9 %; Mean Corpuscular HGB Conc 34.4 g/dL (31.6-35.5); Mean Corpuscular Hemoglobin 30.4 pg (28.0-33.3); Mean Corpuscular Volume 88.2 fL (83.0-100.0); Monocytes # 0.3 K/mcL (0.0-1.3); Monocytes % 4.3 %; Neutrophils # 5.6 K/mcL (1.6-8.9); Platelet Count 161 K/mcL (140-400); Red Blood Count 4.25 M/mcL (3.82-4.97); Segmented Neutrophils % 72.6 %
[2018-03-14 23:49] LABS: Hemoglobin 12.9 g/dL (11.5-15.4)
[2018-03-15 00:22] LABS: BUN/Creatinine Ratio 40 (6-26); Blood Urea Nitrogen 34 mg/dL (6-20); Calcium 8.5 mg/dL (8.6-10.3); Carbon Dioxide 39 mEq/L (23-29); Chloride 93 mEq/L (98-107); Glucose 113 mg/dL (70-105); Osmolality,Calculated 294 (280-300); Potassium 2.4 mEq/L (3.5-5.1); Sodium 138 mEq/L (136-145); eGFR For Non-African Americans > 60 (> 60)
[2018-03-15] MEDS: *HR* Heparin 5,000 UNIT/ML VIAL SQ SCH ×2 (06:03→18:10)
--- NOTE | 2018-03-15 06:55 | Electrocardiograph Report ---
[place] 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
[2018-03-15 07:32] LABS: BUN/Creatinine Ratio 39 (6-26); Blood Urea Nitrogen 28 mg/dL (6-20); Calcium 8.5 mg/dL (8.6-10.3); Carbon Dioxide 35 mEq/L (23-29); Chloride 97 mEq/L (98-107); Glucose 83 mg/dL (70-105); Magnesium 1.7 mg/dL (1.6-2.6); Osmolality,Calculated 291 (280-300); Phosphorous 2.3 mg/dL (2.7-4.5); Potassium 2.9 mEq/L (3.5-5.1); Sodium 138 mEq/L (136-145); eGFR For Non-African Americans > 60 (> 60)
[2018-03-15] MEDS: Pregabalin 75 MG CAPSULE PO SCH ×2 (08:32→20:16)
[2018-03-15] MEDS: Acetaminophen 325 MG TABLET PO PRN ×2 (10:06→16:15)
--- NOTE | 2018-03-15 16:42 | Internal Med Progress Note ---
Hospitalist Progress Note - Encounter Date of Encounter: 03/15/18 Time of Encounter: 16:40 - Subjective Interval History: Evaluated at bedside, reports doing well, denies chest pain, palpitation. Denies shortness of breath, muscle weakness. Or syncopal episode. - Exam Vitals: Temp Pulse Resp BP Pulse Ox 97.9 F 92 16 115/86 96 03/15/18 10:59 03/15/18 10:59 03/15/18 10:59 03/15/18 10:59 03/15/18 10:59 Exam: General: Patient is alert, oriented, no acute distress Respiratory: Good respiratory effort. Clear to auscultation bilaterally, no wheezing, no crackles or rales in the posterior lung gibbs Cardiovascular: Normal s1 and s2 No rubs, gallops, or murmors. Abdomen: Bowel sounds present normoactive x-4 quadrants. Abdomen is soft, nondistended. 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 Neuro: Alert and oriented x4. Cranial nerves 2-12 is intact. Psych: Patient's affect is normal - Assessment and Plan (1) Hypokalemia Current Visit: Yes Status: Acute Assessment and Plan: Plan: Patient has received 80 meq of potassium today - Repeat BMP, if Potassium <3.5, give 20 meq of potassium more for a total of 100 meq of potassium today. - f/u AM BMP (2) Cardiomyopathy Current Visit: No Status: Chronic Assessment and Plan: Patient has a History of Post cardiomyopathy. Plan: - Continue with the Beta -martha - Hold lasix for another day - Discussed with the patient about starting her on a SHAKIR inhibitor, but she reports that the lowest dosage of an SHAKIR inhibitor brings her BP down when she takes it with carvedilol. (3) DVT prophylaxis Current Visit: Yes Status: Acute Assessment and Plan: Chemical DVT prophylaxis with heparin 5000 units subcutaneous every 12 hours - Time Spent with Patient Total time spent is greater than 50% in coordination of care (as documented) at patient's floor/unit and/or counseling patient: 25 - 35 minutes Plan of Care Discussed with: nurse (and the patient.) Internal Medicine: Result - Labs CBC & Chem 7: 03/14/18 23:38 03/15/18 06:33 Consult Discharge Plan - Plan Referrals: Greg Ackerman, COOLING TOWER OPERATOR [Primary Care Provider] - (2) Cardiomyopathy Qualifiers: Cardiomyopathy type: other Qualified Code(s): I42.8 - Other cardiomyopathies
[2018-03-15 17:44] LABS: BUN/Creatinine Ratio 34 (6-26); Blood Urea Nitrogen 30 mg/dL (6-20); Calcium 8.3 mg/dL (8.6-10.3); Carbon Dioxide 35 mEq/L (23-29); Chloride 101 mEq/L (98-107); Glucose 97 mg/dL (70-105); Osmolality,Calculated 292 (280-300); Potassium 3.6 mEq/L (3.5-5.1); Sodium 138 mEq/L (136-145); eGFR For Non-African Americans > 60 (> 60)
[2018-03-16 06:28] LABS: Basophils % 0.4 %; Eosinophils # 0.3 K/mcL (0.0-0.6); Eosinophils % 4.9 %; Hematocrit 40.4 % (35.3-44.9); Hemoglobin 13.4 g/dL (11.5-15.4); Immature Granulocytes % 0.6 % (0-4); Lymphocytes # 1.5 K/mcL (0.6-4.6); Lymphocytes % 28.4 %; Mean Corpuscular HGB Conc 33.2 g/dL (31.6-35.5); Mean Corpuscular Hemoglobin 29.8 pg (28.0-33.3); Mean Corpuscular Volume 89.8 fL (83.0-100.0); Mean Platelet Volume 11.9 fL (9.4-12.4); Monocytes # 0.4 K/mcL (0.0-1.3); Monocytes % 8.4 %; Neutrophils # 2.9 K/mcL (1.6-8.9); Platelet Count 127 K/mcL (140-400); Red Cell Distribution Width 14.3 % (11.5-14.5); Segmented Neutrophils % 57.3 %
[2018-03-16 06:33] VITALS: BP 99/62
--- NOTE | 2018-03-16 07:32 | Discharge Summary ---
- NOTES TO OUTPATIENT PROVIDER Notes to Outpatient Provider: BMP within a week. Orders not resulted at time of discharge: Pending orders 03/16/18 07:09 Basic Metabolic Panel Routine Magnesium Routine Date of Encounter: 03/16/18 Time of Encounter: 07:28 - Discharge Diagnosis (1) Hypokalemia Priority: Primary Status: Resolved (2) Cardiomyopathy Priority: Secondary Status: Chronic Qualifiers: Cardiomyopathy type: other Qualified Code(s): I42.8 - Other cardiomyopathies (3) DVT prophylaxis Priority: Secondary Status: Acute Hospital course: Ms. Barlow is a 37 year old female past medical history of cardiomyopathy. Patient presented to the ER following a syncopal episode. In he ED patient found to have low serum potassium of <3. Patient managed with IV and PO potassium replacement. Electrolyte corrected. Patient clinically stable to be discharged and follow up with her PCP. - Time Spent with Patient Total time spent providing and/or coordinating discharge services: Less than 30 minutes - Discharge Medications Prescriptions: Potassium Chloride 40 meq PO DAILY 30 Days #30 tab.er.prt Home Medications: Carvedilol [Coreg] 9.375 mg PO BID 08/15/17 [History] Lisinopril [Zestril] 5 mg PO HS 08/15/17 [History] Trazodone HCl 100 mg PO DAILY PRN 01/20/18 [History] Acetaminophen/Butalbital/Caffe [Fioricet] 1 tab PO DAILY PRN 02/01/18 [History] Furosemide [Lasix] 40 mg PO 1700,2100 02/01/18 [History] Furosemide [Lasix] 80 mg PO QAM 02/01/18 [History] Loratadine [Claritin] 10 mg PO DAILY 02/01/18 [History] Pregabalin [Lyrica] 150 mg PO BID 03/14/18 [History] Potassium Chloride 40 meq PO DAILY 30 Days #30 tab.er.prt 03/16/18 [Rx] Allergies/Adverse Reactions: 3 Allergy/AdvReac Type Severity Reaction Status Date / Time Erythromycin Base Allergy Vomiting Verified 01/20/18 18:04 metoclopramide [From Reglan] Allergy See Verified 01/20/18 18:04 Comments Neomycin Allergy Vomiting Verified 01/20/18 18:04 captopril [From Capoten] AdvReac Difficulty Verified 01/20/18 18:04 Breathing ciprofloxacin AdvReac Nausea Verified 01/20/18 18:04 clarithromycin [From Biaxin] AdvReac Vomiting Verified 01/20/18 18:04 Iodinated Contrast- Oral and AdvReac Difficulty Verified 01/20/18 18:04 IV Dye Swallowing [Iodinated Contrast Media - Oral and] nitroglycerin AdvReac Difficulty Verified 01/20/18 18:04 Swallowing Date of admission: 03/15/18 07:57 Primary care physician: Greg Ackerman CNP - Constitutional Vitals: Temp Pulse Resp BP Pulse Ox 97.9 F 68 16 99/62 97 03/16/18 06:31 03/16/18 06:31 03/16/18 06:31 03/16/18 06:31 03/16/18 06:31 Exam: General: Patient is alert, oriented, no acute distress Respiratory: Good respiratory effort. Clear to auscultation bilaterally, no wheezing, no crackles or rales in the posterior lung gibbs Cardiovascular: Normal s1 and s2 No rubs, gallops, or murmors. Abdomen: Bowel sounds present normoactive x-4 quadrants. Abdomen is soft, nondistended. 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 Neuro: Alert and oriented x4. Cranial nerves 2-12 is intact. Psych: Patient's affect is normal - Patient Status Disposition: Home, Self-Care Condition: Good Functional capacity at discharge: independent ambulation Overall status at discharge: patient is back to baseline - Discharge Instructions Follow Up With: Greg Ackerman CNP [Primary Care Provider] - - Diet and Activity Activity: resume usual activities as tolerated Diet: advance to your usual diet
[2018-03-16] MEDS: *HR* Heparin 5,000 UNIT/ML VIAL SQ SCH (07:36)
[2018-03-16] MEDS: Pregabalin 75 MG CAPSULE PO SCH (07:52)
[2018-03-16] MEDS: Acetaminophen 325 MG TABLET PO PRN (07:52)
[2018-03-16 07:59] LABS: BUN/Creatinine Ratio 32 (6-26); Blood Urea Nitrogen 25 mg/dL (6-20); Calcium 8.6 mg/dL (8.6-10.3); Carbon Dioxide 29 mEq/L (23-29); Chloride 105 mEq/L (98-107); Glucose 100 mg/dL (70-105); Magnesium 1.7 mg/dL (1.6-2.6); Osmolality,Calculated 292 (280-300); Potassium 3.6 mEq/L (3.5-5.1); Sodium 139 mEq/L (136-145); eGFR For Non-African Americans > 60 (> 60)
--- NOTE | 2018-03-17 15:20 | Electrocardiograph Report ---
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
== END 2018-03-16 09:14 | disposition home or self-care (01) | DRG 641 ==
LOC: EMEROOARM 12:23 → 3ANU 12:23 → SUATTDRO 15:04 → 3ANU 15:50
PROVIDERS: ADMIT Internal Medicine; ATTEND Internal Medicine

== ENCOUNTER 2018-03-28 21:56 | Observation (INO) ==
--- NOTE | 2018-03-28 23:12 | Emergency Department Note ---
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 She states that two months ago her PCP increased her Lasix to 40mg qid. She states she is currently in a assisted house that doesn't have air conditioning and felt very hot when the symptoms occurred and is feeling much better now that she is here at the hospital, but it's still having difficulty breathing. Patient has had problems with her potassium as well. She was recently admitted last week for hypokalemia secondary to her Lasix use. She states her last EF was around 40%. She does admit to some muscle aches and myalgias. She denies any weight gain. States her legs are at her baseline. Pain Scale: 2 - Related Data Home Medications Medication Instructions Recorded Confirmed Carvedilol [Coreg] 9.375 mg PO BID 08/15/17 03/14/18 Lisinopril [Zestril] 5 mg PO HS 08/15/17 03/14/18 Trazodone HCl 100 mg PO DAILY PRN 01/20/18 03/14/18 Acetaminophen/Butalbital/Caffe 1 tab PO DAILY PRN 02/01/18 03/14/18 [Fioricet] Furosemide [Lasix] 40 mg PO 1700,2100 02/01/18 03/14/18 Furosemide [Lasix] 80 mg PO QAM 02/01/18 03/14/18 Loratadine [Claritin] 10 mg PO DAILY 02/01/18 03/14/18 Pregabalin [Lyrica] 150 mg PO BID 03/14/18 03/14/18 Previous Rx's Medication Instructions Recorded Potassium Chloride 40 meq PO DAILY 30 Days #30 03/16/18 tab.er.prt Albuterol Sulfate [Albuterol 2 puff IH Q6HR PRN #1 inhaler 03/22/18 Inhaler] Benzonatate [Tessalon] 200 mg PO TID PRN 7 Days #15 03/22/18 capsule Allergies Allergy/AdvReac Type Severity Reaction Status Date / Time Erythromycin Base Allergy Vomiting Verified 01/20/18 18:04 metoclopramide [From Reglan] Allergy See Verified 01/20/18 18:04 Comments Neomycin Allergy Vomiting Verified 01/20/18 18:04 captopril [From Capoten] AdvReac Difficulty Verified 01/20/18 18:04 Breathing clarithromycin [From Biaxin] AdvReac Vomiting Verified 01/20/18 18:04 Iodinated Contrast- Oral and AdvReac Difficulty Verified 01/20/18 18:04 IV Dye Swallowing [Iodinated Contrast Media - Oral and] nitroglycerin AdvReac Difficulty Verified 01/20/18 18:04 Swallowing All systems ED: reviewed and negative except as stated. Constitutional: Reports: as per HPI Cardiovascular: Denies: chest pain Respiratory: Reports: cough, wheezes Gastrointestinal: Reports: as per HPI. Denies: nausea, vomiting Genitourinary: Reports: as per HPI Musculoskeletal: Reports: as per HPI Integumentary: Reports: as per HPI Neurological: Reports: as per HPI Psychiatric: Reports: as per HPI Endocrine: Reports: as per HPI Past Medical History - Past Medical History Medical history: Reports: cardiomyopathy, migraine, other Surgical history: Reports: cholecystectomy, hysterectomy, pacemaker/AICD, other Psychiatric history: Reports: anxiety, depression TERRITORY SALES MANAGER history: Reports: no TERRITORY SALES MANAGER history - Social History Smoking Status: Former smoker Smokeless Tobacco Status: No Alcohol use: Reports: none Drug use: Reports: none Physical Exam HEENT: Head atraumatic normocephalic. Pharynx clear with no exudates. Oral mucosa moist. Uvula midline. TMs clear bilaterally. Trachea midline. No lymphadenopathy. Heart: Regular rate and rhythm. Normal S1 and S2. No gallops, rubs, or murmurs. Lungs: Positive for bilateral wheezes heard throughout.. Abdomen: Soft nontender nondistended. Positive bowel sounds. No peritoneal signs. Extremities: No evidence of cyanosis clubbing or edema. Neuro: Cranial nerves II through XII grossly intact. No focal motor or sensory deficits. Speech is clear. Skin: Normal color. dry. Psych: normal mentation. Musculoskeletal: Left upper extremity atrophy - General General appearance: alert, in no apparent distress Course Vital Signs Temperature 98.8 F 03/28/18 22:04 Pulse Rate 102 03/28/18 22:04 Respiratory Rate 16 03/28/18 22:04 Blood Pressure 131/83 03/28/18 22:04 O2 Sat by Pulse Oximetry 94 03/28/18 22:04 Temperature 98.8 F 03/28/18 22:04 Pulse Rate 102 03/28/18 22:04 Respiratory Rate 16 03/28/18 22:04 Blood Pressure 131/83 03/28/18 22:04 O2 Sat by Pulse Oximetry 92 03/28/18 23:01 Oxygen Delivery Oxygen Delivery Room Air Medical Decision Making - MDM Narrative Medical decision making narrative: Patient will need to be admitted for hypokalemia of 2.5. I have ordered oral and IV potassium. She was admitted last week for the same. Chest x-ray is normal. She has been having URI type symptoms and has been using a and albuterol inhaler periodically. We will give her a DuoNeb treatment here. - Medical Records Medical records reviewed: Yes I reviewed the patient's medical records. - Lab Data Lab results reviewed: Yes I reviewed the patient's lab results. Result diagrams: 03/28/18 23:01 03/28/18 22:57 Lab Results 03/28/18 03/28/18 Range/Units 22:57 23:01 WBC 5.8 (4.3-11.1) K/mcL RBC 4.60 (3.82-4.97) M/mcL Hgb 13.7 (11.5-15.4) g/dL Hct 41.0 (35.3-44.9) % MCV 89.1 (83.0-100.0) fL MCH 29.8 (28.0-33.3) pg MCHC 33.4 (31.6-35.5) g/dL RDW 14.5 (11.5-14.5) % Plt Count 194 (140-400) K/mcL MPV 11.5 (9.4-12.4) fL Immature Gran % 0.2 (0-4) % Seg Neutrophils % 55.9 % Lymphocytes % 34.1 % Monocytes % 5.7 % Eosinophils % 3.8 % Basophils % 0.3 % Neutrophils # 3.3 (1.6-8.9) K/mcL Lymphocytes # 2.0 (0.6-4.6) K/mcL Monocytes # 0.3 (0.0-1.3) K/mcL Eosinophils # 0.2 (0.0-0.6) K/mcL Basophils # 0.0 (0.0-0.2) K/mcL Sodium 141 (136-145) mEq/L Potassium 2.5 L* (3.5-5.1) mEq/L Chloride 95 L (98-107) mEq/L Carbon Dioxide 37 H (23-29) mEq/L BUN 31 H (6-20) mg/dL Creatinine 1.06 (0.60-1.20) mg/dL Est GFR ( Amer) > 60 (> 60) Est GFR (Non-Af Amer) 58 L (> 60) BUN/Creatinine Ratio 29 H (6-26) Glucose 91 (70-105) mg/dL Calculated Osmolality 298 (280-300) Calcium 9.2 (8.6-10.3) mg/dL Troponin I < 0.03 (< 0.04) ng/mL - Radiology Data Radiology results reviewed: Yes I reviewed the patient's radiology results. - EKG Data EKG #1 EKG attestation: Yes I reviewed and interpreted this EKG. EKG results narrative: EKG shows a rate of 106. Sinus tachycardia. Normal axis. TX interval 142. QRS 95. QTC was lengthened at 509. NO U wave seen.
[2018-03-28 23:19] LABS: Basophils % 0.3 %; Eosinophils # 0.2 K/mcL (0.0-0.6); Eosinophils % 3.8 %; Hemoglobin 13.7 g/dL (11.5-15.4); Immature Granulocytes % 0.2 % (0-4); Lymphocytes % 34.1 %; Mean Corpuscular HGB Conc 33.4 g/dL (31.6-35.5); Mean Corpuscular Hemoglobin 29.8 pg (28.0-33.3); Mean Corpuscular Volume 89.1 fL (83.0-100.0); Mean Platelet Volume 11.5 fL (9.4-12.4); Monocytes # 0.3 K/mcL (0.0-1.3); Monocytes % 5.7 %; Neutrophils # 3.3 K/mcL (1.6-8.9); Platelet Count 194 K/mcL (140-400); Red Cell Distribution Width 14.5 % (11.5-14.5); Segmented Neutrophils % 55.9 %
[2018-03-28 23:42] LABS: BUN/Creatinine Ratio 29 (6-26); Blood Urea Nitrogen 31 mg/dL (6-20); Calcium 9.2 mg/dL (8.6-10.3); Carbon Dioxide 37 mEq/L (23-29); Chloride 95 mEq/L (98-107); Glucose 91 mg/dL (70-105); Osmolality,Calculated 298 (280-300); Potassium 2.5 mEq/L (3.5-5.1); Sodium 141 mEq/L (136-145); Troponin I < 0.03 ng/mL (< 0.04); eGFR For Non-African Americans 58 (> 60)
[2018-03-29] MEDS ORDERED: Ipratropium/Albuterol Neb 3 ML IH ONE (00:18)
[2018-03-29] MEDS ORDERED: Naloxone 0.4 MG/ML INJ IVP PRN (02:11)
[2018-03-29] MEDS ORDERED: Acetaminophen 325 MG TABLET PO PRN (02:11)
--- NOTE | 2018-03-29 02:55 | Internal Med History&Physical ---
Date of Encounter: 03/29/18 Time of Encounter: 02:50 Internal Medicine - H&P: HPI Chief complaint: chest pain Admitted From: Emergency Dept History of present illness: Ms. Barlow is a 37 year old female hx chemotherapy induced cardiomyopathy presented to ED for stabbing left sided chest pain. Assoicated smyptoms of lightheaded, clammy feeling and increased heart rate. Pain was triggered by coughing fit and improved after taking extra dose of Co-reg. She has 3 days of increased cough, congestion and mucus productions after multiple sick contacts. It is worse with hot air as she is currently living in custodial house with out air conditioning. In ED, HR 102 BP 131/83 and RR 16 with 94% RA. EKG no acute changes and negative troponin. Her K was found to be 2.5. She was given 40 meq PO and started four bags of 10meq IV. She used duoneb treatment with improved her cough. She was recently discharged on 03-16 after treated for hypokalemia. She attributes this to less controlled over her diet after being remanded to custodial [facility]. Also complains of constipation with last BM five days ago. She has been taking 80 mg Lasix bid and doesn't remember when PCP increased dose but has been struggling with increased pedal edema and pain with ambulation for six months - she doesn't believe lasix is working well enough. She admits to a lot of life stresses recently with job loss and court ordered custodial house. PMHx HTN but no history of asthma or COPD and doesn't use inhalers or nebulizers at home. Quit smoking a few months ago after 5 years. Eriberto EtOH or illicit drug use. No family hx of Mi but parents have HTN. Surgical history included multiple surgeries for childhood cancer. She has pacemaker removed in 2005 and cardiac ablation preformed at that time. Past Med Surg Social Fam HX - Past Medical History Medical history: cardiomyopathy, migraine, other Additional medical history: rhabdomyosarcoma-radiation therapy. cardiomyopathy Psychiatric history: anxiety, depression - Past Surgical History Surgical History: cholecystectomy, hysterectomy, pacemaker/AICD, other Additional surgical history: Pacemaker removed in 2005 - Social History Smoking Status: Former smoker Smokeless Tobacco Status: No Alcohol use: none Drug use: none - Family History Mother Living Status: Still Living Hx Family Cancer: Yes (Kidney) Hx Family Endocrine Disorder: Yes (DM) Father Living Status: Still Living Hx Family Cardiac Disorders: Yes (HTN) Hx Family Medical Disorders: Yes (Parkinsons) Internal Medicine - H&P: Meds Carvedilol [Coreg] 9.375 mg PO BID 08/15/17 [History] Lisinopril [Zestril] 5 mg PO HS 08/15/17 [History] Trazodone HCl 100 mg PO DAILY PRN 01/20/18 [History] Acetaminophen/Butalbital/Caffe [Fioricet] 1 tab PO DAILY PRN 02/01/18 [History] Furosemide [Lasix] 40 mg PO 1700,2100 02/01/18 [History] Furosemide [Lasix] 80 mg PO QAM 02/01/18 [History] Loratadine [Claritin] 10 mg PO DAILY 02/01/18 [History] Pregabalin [Lyrica] 150 mg PO BID 03/14/18 [History] Potassium Chloride 40 meq PO DAILY 30 Days #30 tab.er.prt 03/16/18 [Rx] Albuterol Sulfate [Albuterol Inhaler] 2 puff IH Q6HR PRN #1 inhaler 03/22/18 [Rx ] Benzonatate [Tessalon] 200 mg PO TID PRN 7 Days #15 capsule 03/22/18 [Rx] 3 Allergy/AdvReac Type Severity Reaction Status Date / Time Erythromycin Base Allergy Vomiting Verified 01/20/18 18:04 metoclopramide [From Reglan] Allergy See Verified 01/20/18 18:04 Comments Neomycin Allergy Vomiting Verified 01/20/18 18:04 captopril [From Capoten] AdvReac Difficulty Verified 01/20/18 18:04 Breathing clarithromycin [From Biaxin] AdvReac Vomiting Verified 01/20/18 18:04 Iodinated Contrast- Oral and AdvReac Difficulty Verified 01/20/18 18:04 IV Dye Swallowing [Iodinated Contrast Media - Oral and] nitroglycerin AdvReac Difficulty Verified 01/20/18 18:04 Swallowing All Systems PM: A 10-system review of systems was performed and is negative for pertinent findings except as documented above in the HPI. - Constitutional Constitutional: excessive sweating, no fever(s), no weakness - EENT Eyes: blurry vision, no loss of peripheral vision Nose, mouth and throat: nasal congestion - Cardiovascular Cardiovascular ROS IM: chest pain, diaphoresis, dyspnea, edema, lightheadedness , no irregular heart rhythm, no palpitations - Respiratory Respiratory: cough, excessive phlegm production, no wheezing - Gastrointestinal Gastrointestinal: constipation, no diarrhea, no nausea, no vomiting - Genitourinary Genitourinary: no dysuria, no urinary frequency, no urinary incontinence - Musculoskeletal Musculoskeletal ROS IM: no atrophy - Constitutional Vitals: Temp Pulse Resp BP Pulse Ox 97.5 F L 82 14 110/81 95 03/29/18 01:30 03/29/18 01:30 03/29/18 01:30 03/29/18 01:30 03/29/18 01:30 General appearance: Present: cooperative, A&O X 3, no acute distress, obese, answers questions appropriately Exam: I can not appreciate any edema but patient points out that her legs do not taper at ankles - Head Head exam: Present: atraumatic, normocephalic - ENT ENT exam: Present: mucous membranes moist, normal oropharynx - Expanded ENT Exam Throat exam: Absent: post pharyngeal edema, tonsillar exudate - Respiratory Respiratory exam: Present: CTAB. Absent: rales, wheezes - Cardiovascular Cardiovascular exam: Present: RRR. Absent: gallop, rubs Additional comments: no tenderness to palpation - GI/Abdominal GI/Abdominal exam: Present: hypoactive bowel sounds, soft. Absent: mass, tenderness - Extremities Exam Extremities exam: Present: full ROM, radial pulses palpable and symmetrical. Absent: pedal edema, tenderness - Neurological Exam Neurological exam: Present: no focal deficits, strengths equal and symetr throughout - Psychiatric Psychiatric exam: Present: anxious, depressed Additional comments: tearful when speaking of life stresses Internal Med - H&P Results - Labs CBC & Chem 7: 03/28/18 23:01 03/28/18 22:57 - Assessment and plan (1) Hypokalemia Current Visit: No Status: Acute Assessment and plan: K 2.5 is being replaced in Ed with four bags 10 meq IV and 40 meq PO -EKG: no acute changes, similar to last - cardiac monitoring - hold lasix - repeat CMP in morning (2) Chest pain Current Visit: Yes Status: Resolved Assessment and plan: Low suspicion for CO given atypical pain was resolved. No acute EKG changes and negative troponin - trend troponins Qualifiers: Chest pain type: other chest pain Qualified Code(s): R07.89 - Other chest pain; R07.8 - Other chest pain (3) Cardiomyopathy Current Visit: No Status: Chronic Assessment and plan: Clinically does not appear to be in acute heart failure Last echo EF 40-45% with diastolic function indeterminate was 04-26-17 Qualifiers: Cardiomyopathy type: due to drug Qualified Code(s): I42.7 - Cardiomyopathy due to drug and external agent (4) Upper respiratory infection Current Visit: Yes Status: Acute Assessment and plan: URI with possible underlying COPD - Tessalon prn cough - Duonebs q6 prn - May benefit from out patient PFTs Qualifiers: URI type: unspecified viral URI Qualified Code(s): J06.9 - Acute upper respiratory infection, unspecified (5) Constipated Current Visit: Yes Status: Acute Assessment and plan: miralax Qualifiers: Constipation type: unspecified constipation type Qualified Code(s): K59.00 - Constipation, unspecified (6) DVT prophylaxis Current Visit: No Status: Acute Assessment and plan: heparin sq - Time Spent With Patient Total time spent is greater than 50% in coordination of care (as documented) at patient's floor/unit and/or counseling patient: Greater than 35 minutes
[2018-03-29] MEDS ORDERED: Benzonatate 100 MG CAPSULE PO PRN (02:58)
[2018-03-29] MEDS: *HR* Heparin 5,000 UNIT/ML VIAL SQ SCH ×3 (05:53→21:42)
[2018-03-29 06:59] LABS: BUN/Creatinine Ratio 29 (6-26); Blood Urea Nitrogen 28 mg/dL (6-20); Carbon Dioxide 36 mEq/L (23-29); Chloride 99 mEq/L (98-107); Glucose 122 mg/dL (70-105); Osmolality,Calculated 301 (280-300); Potassium 2.7 mEq/L (3.5-5.1); Sodium 142 mEq/L (136-145); eGFR For Non-African Americans > 60 (> 60)
[2018-03-29 08:15] LABS: Basophils % 0.4 %; Eosinophils # 0.3 K/mcL (0.0-0.6); Eosinophils % 5.1 %; Hematocrit 34.6 % (35.3-44.9); Immature Granulocytes % 0.2 % (0-4); Lymphocytes # 1.7 K/mcL (0.6-4.6); Lymphocytes % 32.7 %; Mean Corpuscular HGB Conc 33.5 g/dL (31.6-35.5); Mean Corpuscular Hemoglobin 29.7 pg (28.0-33.3); Mean Corpuscular Volume 88.7 fL (83.0-100.0); Mean Platelet Volume 12.4 fL (9.4-12.4); Monocytes # 0.4 K/mcL (0.0-1.3); Monocytes % 8.1 %; Neutrophils # 2.7 K/mcL (1.6-8.9); Platelet Count 157 K/mcL (140-400); Red Cell Distribution Width 14.7 % (11.5-14.5); Segmented Neutrophils % 53.5 %
[2018-03-29 08:21] LABS: Calcium 8.8 mg/dL (8.6-10.3); Hemoglobin 11.6 g/dL (11.5-15.4)
[2018-03-29] MEDS ORDERED: Potassium Chloride 40 MEQ, Lidocaine 1% 2 ML in D5% in Water 500 ML IVPB ONE (09:17)
[2018-03-29] MEDS ORDERED: Potassium Chloride Elixir 20 MEQ/15 ML UDC PO ONE (09:18)
--- NOTE | 2018-03-29 10:47 | Event Note ---
Date of Encounter: 03/29/18 Time of Encounter: 10:45 Pt seen after MN. K 2.7 this am. K riders runing. WIll recheck K level later in the day following completion of K rider. Will reassess in am. Pt denies any acute changes. She denies fever, chills, N/V, diarrhea, CP or SOB.
[2018-03-29] MEDS: Pregabalin 75 MG CAPSULE PO SCH ×2 (11:10→20:31)
[2018-03-29 11:31] LABS: BUN/Creatinine Ratio 28 (6-26); Blood Urea Nitrogen 26 mg/dL (6-20); Carbon Dioxide 36 mEq/L (23-29); Chloride 99 mEq/L (98-107); Glucose 106 mg/dL (70-105); Magnesium 1.9 mg/dL (1.6-2.6); Osmolality,Calculated 295 (280-300); Potassium 2.9 mEq/L (3.5-5.1); Sodium 140 mEq/L (136-145); eGFR For Non-African Americans > 60 (> 60)
[2018-03-29] MEDS: Ipratropium/Albuterol Neb 3 ML IH PRN ×2 (16:33→21:17)
[2018-03-29 23:10] LABS: Amphetamine Screen,Urine Negative ng/mL (Cutoff=1000); Barbiturate Screen,Urine Negative ng/mL (Cutoff=200); Benzodiazepines Screen,Urine Negative ng/mL (Cutoff=200); Cannabinoid Screen,Urine Negative ng/mL (Cutoff = 50); Cocaine Screen,Urine Negative ng/mL (Cutoff= 300); Opiate Screen,Urine Negative ng/mL (Cutoff=300); Phencyclidine Screen,Urine Negative ng/mL (Cutoff=25)
[2018-03-30] MEDS: *HR* Heparin 5,000 UNIT/ML VIAL SQ SCH ×2 (05:14→15:05)
[2018-03-30 08:19] LABS: BUN/Creatinine Ratio 30 (6-26); Blood Urea Nitrogen 21 mg/dL (6-20); Calcium 8.8 mg/dL (8.6-10.3); Carbon Dioxide 33 mEq/L (23-29); Chloride 102 mEq/L (98-107); Glucose 95 mg/dL (70-105); Osmolality,Calculated 291 (280-300); Potassium 3.1 mEq/L (3.5-5.1); Sodium 139 mEq/L (136-145); eGFR For Non-African Americans > 60 (> 60)
[2018-03-30] MEDS: Pregabalin 75 MG CAPSULE PO SCH (08:21)
[2018-03-30] MEDS: Ipratropium/Albuterol Neb 3 ML IH PRN (10:10)
[2018-03-30] MEDS ORDERED: Potassium Chloride 20 MEQ, Lidocaine 1% 2 ML in D5% in Water 250 ML IVPB ONE (14:49)
[2018-03-30 15:08] VITALS: BP 107/70
--- NOTE | 2018-03-30 17:25 | Internal Med Progress Note ---
Hospitalist Progress Note - Encounter Date of Encounter: 03/30/18 - Exam Vitals: Temp Pulse Resp BP Pulse Ox 97.9 F 94 16 107/70 97 03/30/18 15:06 03/30/18 15:06 03/30/18 15:06 03/30/18 15:06 03/30/18 15:06 - Time Spent with Patient Total time spent is greater than 50% in coordination of care (as documented) at patient's floor/unit and/or counseling patient: less than 15 minutes Plan of Care Discussed with: patient Internal Medicine: Result - Labs CBC & Chem 7: 03/29/18 05:46 03/30/18 07:11 Labs: BMP 03/30/18 07:11 Sodium 139 Potassium 3.1 L Chloride 102 Carbon Dioxide 33 H BUN 21 H Creatinine 0.69 Glucose 95 Calcium 8.8 Consult Discharge Plan - Plan Instructions: Angina (DC), Hypokalemia (DC) Additional Instructions: Follow-up appointments: If there is not an appointment listed below, please call your physician and schedule a follow-up appointment. If you have congestive heart failure and your symptoms return, make an appointment with your physician. Medication List: Carry an up to date list of medications you are taking at all time. We have given you an updated medication list including any new medications that you have been prescribed. Please provide that list to your primary provider Symptoms: If your condition changes or you experience any of the following symptoms, notify your physician immediately: Unusual or worsening pain, fever, persistent nausea and vomiting, bleeding, increase in swelling (especially in your legs), sudden weight gain, extreme dizziness, chest pain, increased drainage or redness from a wound or incision. Go to the emergency department if you experience a problem with breathing. Weights: If you have a history of swelling or shortness of breath, weigh yourself daily and notify your physician if you have a weight gain of two or more pounds in one day or 5 or more pounds in a week. If you experience any of the warning signs for stroke: Sudden numbness or weakness of the face, arm or leg; especially on one side of the body, sudden confusion, trouble speaking or understanding, sudden trouble seeing in one or both eyes, sudden trouble walking, dizziness, loss of balance or coordination, sudden sever headache with no cause; Call 911 or go to the emergency room. Stroke is a medical emergency. Some risk factors for stroke: Age, cigarette smoking, diabetes, excessive alcohol consumption, family history , high blood pressure, overweight, physical inactivity, prior stroke, heart attack, diagnosis of carotid artery stenosis or other artery disease. If you smoke, STOP: Smoking or tobacco use significantly increases your risk of heart and lung disease. Your chance of disease greatly increases if you continue to smoke. For more information, call the [place] tobacco quit line for smoking cessation 6-185- -NOW ( ) Referrals: Greg Ackerman CNP [Primary Care Provider] - 04/06/18 9:00 am Kirsten Banuelos CNP [Advanced Practice Nurse] - 04/10/18 10:30 am
--- NOTE | 2018-03-30 17:29 | Discharge Summary ---
- NOTES TO OUTPATIENT PROVIDER Notes to Outpatient Provider: PCP in 5 to 7 days Orders not resulted at time of discharge: Pending orders 03/30/18 16:38 Potassium Stat Date of Encounter: 03/30/18 Time of Encounter: 17:26 - Discharge Diagnosis (1) Hypokalemia Priority: Primary Status: Acute Assessment and Plan: Improved after treating with riders and PO K supplement. Pt was on 120 mg of Lasix a day which was contributing to significantly low K levels. 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 She is to follow up out pt for further recommendations regarding medication adjustments. K level on admission 2.7 now 4.2 at discharge. (2) Constipated Priority: Secondary Status: Acute Assessment and Plan: Given Miralax. Qualifiers: Constipation type: unspecified constipation type Qualified Code(s): K59.00 - Constipation, unspecified (3) Upper respiratory infection Priority: Secondary Status: Acute Assessment and Plan: resolved Qualifiers: URI type: unspecified viral URI Qualified Code(s): J06.9 - Acute upper respiratory infection, unspecified (4) Chest pain Priority: Secondary Status: Resolved Assessment and Plan: Resolved. Pain scale 2/10 don to 0/10. troponin neg x 2. EKG did not show any ACS changes. Qualifiers: Chest pain type: other chest pain Qualified Code(s): R07.89 - Other chest pain; R07.8 - Other chest pain (5) Cardiomyopathy Priority: Secondary Status: Chronic Assessment and Plan: Changing Lasix tjo Bumex. Follow up out pt with cardiology. Qualifiers: Cardiomyopathy type: due to drug Qualified Code(s): I42.7 - Cardiomyopathy due to drug and external agent Hospital course: Ms. 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 She states that two months ago her PCP increased her Lasix to 40mg qid. She states she is currently in a retirement house that doesn't have air conditioning and felt very hot when the symptoms occurred and is feeling much better now that she is here at the hospital, but it's still having difficulty breathing. Patient has had problems with her potassium as well. She was recently admitted last week for hypokalemia secondary to her Lasix use. She states her last EF was around 40%. She does admit to some muscle aches and myalgias. She denies any weight gain. States her legs are at her baseline. Pain Scale: 2 on admission, 0 at discharge. Discharge discussed with: patient - Time Spent with Patient Total time spent providing and/or coordinating discharge services: Greater than 30 minutes - Discharge Medications Prescriptions: Bumetanide [Bumex] 1 mg PO DAILY #30 tablet Potassium Chloride Elixir [Potassium Chloride] 40 meq PO DAILY #30 mls Home Medications: Carvedilol [Coreg] 9.375 mg PO BID 08/15/17 [History] Lisinopril [Zestril] 5 mg PO HS 08/15/17 [History] Acetaminophen/Butalbital/Caffe [Fioricet] 1 tab PO DAILY PRN 02/01/18 [History] Loratadine [Claritin] 10 mg PO DAILY 02/01/18 [History] Pregabalin [Lyrica] 150 mg PO BID 03/14/18 [History] Albuterol Sulfate [Albuterol Inhaler] 2 puff IH Q6HR PRN #1 inhaler 03/22/18 [Rx ] Benzonatate [Tessalon] 200 mg PO TID PRN 7 Days #15 capsule 03/22/18 [Rx] Bumetanide [Bumex] 1 mg PO DAILY #30 tablet 03/30/18 [Rx] Potassium Chloride Elixir [Potassium Chloride] 40 meq PO DAILY #30 mls 03/30/18 [Rx] Allergies/Adverse Reactions: 3 Allergy/AdvReac Type Severity Reaction Status Date / Time Erythromycin Base Allergy Vomiting Verified 01/20/18 18:04 metoclopramide [From Reglan] Allergy See Verified 01/20/18 18:04 Comments Neomycin Allergy Vomiting Verified 01/20/18 18:04 captopril [From Capoten] AdvReac Difficulty Verified 01/20/18 18:04 Breathing clarithromycin [From Biaxin] AdvReac Vomiting Verified 01/20/18 18:04 Iodinated Contrast- Oral and AdvReac Difficulty Verified 01/20/18 18:04 IV Dye Swallowing [Iodinated Contrast Media - Oral and] nitroglycerin AdvReac Difficulty Verified 01/20/18 18:04 Swallowing Date of admission: 03/29/18 00:48 Primary care physician: Greg Ackerman CNP Discharging clinician: Mila Spears Anticipated date of discharge: 03/30/18 - Constitutional Vitals: Temp Pulse Resp BP Pulse Ox 97.9 F 94 16 107/70 97 03/30/18 15:06 03/30/18 15:06 03/30/18 15:06 03/30/18 15:06 03/30/18 15:06 General appearance: Present: cooperative, A&O X 3, no acute distress, obese, answers questions appropriately Exam: General appearance: Present: cooperative, A&O X 3, no acute distress, obese, answers questions appropriately Exam: I can not appreciate any edema but patient points out that her legs do not taper at ankles - Head Head exam: Present: atraumatic, normocephalic - ENT ENT exam: Present: mucous membranes moist, normal oropharynx - Expanded ENT Exam Throat exam: Absent: post pharyngeal edema, tonsillar exudate - Respiratory Respiratory exam: Present: CTAB. Absent: rales, wheezes - Cardiovascular Cardiovascular exam: Present: RRR. Absent: gallop, rubs Additional comments: no tenderness to palpation - GI/Abdominal GI/Abdominal exam: Present: hypoactive bowel sounds, soft. Absent: mass, tenderness - Extremities Exam Extremities exam: Present: full ROM, radial pulses palpable and symmetrical. Absent: pedal edema, tenderness - Neurological Exam Neurological exam: Present: no focal deficits, strengths equal and symetr throughout - Psychiatric Psychiatric exam: Present: anxious, depressed Additional comments: - Patient Status Disposition: Home, Self-Care Condition: Good Overall status at discharge: patient is back to baseline - Discharge Instructions Instructions: Angina (DC), Hypokalemia (DC) Follow Up With: Greg Ackerman CNP [Primary Care Provider] - 04/06/18 9:00 am Kirsten Banuelos CNP [Advanced Practice Nurse] - 04/10/18 10:30 am Additional Instructions: Follow-up appointments: If there is not an appointment listed below, please call your physician and schedule a follow-up appointment. If you have congestive heart failure and your symptoms return, make an appointment with your physician. Medication List: Carry an up to date list of medications you are taking at all time. We have given you an updated medication list including any new medications that you have been prescribed. Please provide that list to your primary provider Symptoms: If your condition changes or you experience any of the following symptoms, notify your physician immediately: Unusual or worsening pain, fever, persistent nausea and vomiting, bleeding, increase in swelling (especially in your legs), sudden weight gain, extreme dizziness, chest pain, increased drainage or redness from a wound or incision. Go to the emergency department if you experience a problem with breathing. Weights: If you have a history of swelling or shortness of breath, weigh yourself daily and notify your physician if you have a weight gain of two or more pounds in one day or 5 or more pounds in a week. If you experience any of the warning signs for stroke: Sudden numbness or weakness of the face, arm or leg; especially on one side of the body, sudden confusion, trouble speaking or understanding, sudden trouble seeing in one or both eyes, sudden trouble walking, dizziness, loss of balance or coordination, sudden sever headache with no cause; Call 911 or go to the emergency room. Stroke is a medical emergency. Some risk factors for stroke: Age, cigarette smoking, diabetes, excessive alcohol consumption, family history , high blood pressure, overweight, physical inactivity, prior stroke, heart attack, diagnosis of carotid artery stenosis or other artery disease. If you smoke, STOP: Smoking or tobacco use significantly increases your risk of heart and lung disease. Your chance of disease greatly increases if you continue to smoke. For more information, call the [place] tobacco quit line for smoking cessation QUIT-NOW ( ) - Diet and Activity Activity: increase activity as tolerated Diet: advance to your usual diet
--- NOTE | 2018-03-30 17:30 | Electrocardiograph Report ---
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
[2018-03-31] MEDS ORDERED: Bumetanide 1 MG TABLET PO SCH (09:00)
== END 2018-03-30 17:57 | disposition home or self-care (01) ==
LOC: EMEROOARM 21:56 → 3ANU 21:56 → SUATTDRO 03-29 00:48 → 3ANU 03-29 06:47
PROVIDERS: ADMIT Family Medicine; ATTEND Internal Medicine

== ENCOUNTER 2020-10-31 18:14 | Inpatient (IN) ==
[2020-10-31] MEDS ORDERED: *HR* Midazolam HCl 5 MG/5 ML VIAL IVP ONE ×2 (20:41→20:43)
[2020-10-31] MEDS ORDERED: Naloxone 0.4 MG/ML INJ IVP PRN (20:43)
[2020-10-31] MEDS ORDERED: Artificial Tears SOLN 15 ML BOTTLE BOTH EYES PRN (20:45)
[2020-10-31] MEDS: FentaNYL (PF) 1,000 MCG/100 ML IV.SOLN IVC SCH (20:52)
[2020-10-31 22:19] LABS: ABG Base Excess 2 mEq/L (-2 to 3); ABG HCO3 27 mEq/L (21-27); ABG Oxygen Saturation 89 % (95-98); ABG PCO2 47 mmHg (35-45); ABG PH 7.38 pH Units (7.32-7.45); ABG PO2 59 mmHg (85-104); ABG TCO2 29 mEq/L (20-26); Blood Gas VT 450 cc
[2020-10-31] MEDS: Chlorhexidine Rinse 15 ML MOUTHWASH MM SCH (22:19)
[2020-10-31 22:49] LABS: BUN/Creatinine Ratio 12 (6-26); Blood Urea Nitrogen 11 mg/dL (6-20); Calcium 7.8 mg/dL (8.6-10.3); Carbon Dioxide 27 mEq/L (23-29); Chloride 110 mEq/L (98-107); Glucose 96 mg/dL (70-105); Osmolality,Calculated 297 (280-300); Potassium 3.2 mEq/L (3.5-5.1); Sodium 144 mEq/L (136-145); eGFR For African Americans > 60 (> 60); eGFR For Non-African Americans > 60 (> 60)
[2020-10-31] MEDS: Artificial Tears SOLN 15 ML BOTTLE BOTH EYES SCH (23:30)
[2020-10-31] MEDS: Piperacillin/Tazobactam 3.375 GM in 0.9 % Sodium Chloride Mini Bag 100 ML IVPB SCH (23:30)
[2020-11-01] MEDS ORDERED: *HR* Midazolam HCl 5 MG/5 ML VIAL IVP ONE ×2 (00:38)
[2020-11-01] MEDS: FentaNYL (PF) 1,000 MCG/100 ML IV.SOLN IVC SCH (02:00)
[2020-11-01] MEDS ORDERED: FentaNYL (PF) 2,500 MCG/50 ML IV.SOLN IVC SCH (02:45)
[2020-11-01 03:45] LABS: Basophils % 0.3 %; Eosinophils # 0.1 K/mcL (0.0-0.6); Eosinophils % 2.5 %; Hematocrit 33.7 % (35.3-44.9); Hemoglobin 10.1 g/dL (11.5-15.4); Immature Granulocytes % 0.3 % (0-4); Lymphocytes # 1.1 K/mcL (0.6-4.6); Lymphocytes % 35.3 %; Mean Corpuscular Hemoglobin 24.9 pg (28.0-33.3); Mean Platelet Volume 10.8 fL (9.4-12.4); Monocytes # 0.2 K/mcL (0.0-1.3); Monocytes % 6.8 %; Neutrophils # 1.8 K/mcL (1.6-8.9); Platelet Count 153 K/mcL (140-400); Red Blood Count 4.06 M/mcL (3.82-4.97); Red Cell Distribution Width 15.9 % (11.5-14.5); Segmented Neutrophils % 54.8 %; White Blood Count 3.2 K/mcL (4.3-11.1)
[2020-11-01] MEDS: Artificial Tears SOLN 15 ML BOTTLE BOTH EYES SCH ×3 (03:51→14:21)
[2020-11-01 04:08] LABS: Alanine Aminotransferase 31 Units/L (7-52); Albumin 2.9 g/dL (3.5-5.7); Alkaline Phosphatase 104 Units/L (34-104); Aspartate Amino Transferase 34 Units/L (13-39); BUN/Creatinine Ratio 13 (6-26); Bilirubin,Direct 0.2 mg/dL (0.0-0.2); Bilirubin,Indirect 0.4 mg/dL (0.0-1.0); Bilirubin,Total 0.6 mg/dL (0.3-1.0); Blood Urea Nitrogen 12 mg/dL (6-20); Calcium 7.9 mg/dL (8.6-10.3); Carbon Dioxide 28 mEq/L (23-29); Chloride 111 mEq/L (98-107); Globulin 2.8 g/dL (2.4-3.5); Glucose 88 mg/dL (70-105); Magnesium 1.5 mg/dL (1.6-2.6); Osmolality,Calculated 299 (280-300); Sodium 145 mEq/L (136-145); Total Protein 5.7 g/dL (6.4-8.9); eGFR For African Americans > 60 (> 60); eGFR For Non-African Americans > 60 (> 60)
[2020-11-01 04:30] LABS: ABG Base Excess 3 mEq/L (-2 to 3); ABG HCO3 27 mEq/L (21-27); ABG Oxygen Saturation 100 % (95-98); ABG PCO2 42 mmHg (35-45); ABG PH 7.42 pH Units (7.32-7.45); ABG PO2 171 mmHg (85-104); ABG TCO2 29 mEq/L (20-26); Blood Gas Modality ASSIST CONTROL; Blood Gas VT 450 cc
[2020-11-01] MEDS ORDERED: Potassium Chloride 40 MEQ, Lidocaine 1% 2 ML in 0.9 % Sodium Chloride 500 ML IVPB ONE (05:29)
[2020-11-01] MEDS ORDERED: *HR* LORazepam 2 MG/ML VIAL IVP ONE (05:40)
[2020-11-01 05:59] LABS: Ethanol < 10 mg/dL (Less than 10)
[2020-11-01] MEDS ORDERED: *HR* Enoxaparin 40 MG/0.4 ML SYRINGE SQ SCH (06:00)
[2020-11-01] MEDS ORDERED: Pantoprazole 40 MG VIAL IVP SCH (09:00)
[2020-11-01] MEDS: Piperacillin/Tazobactam 3.375 GM in 0.9 % Sodium Chloride Mini Bag 100 ML IVPB SCH ×2 (09:35→20:11)
[2020-11-01] MEDS: Chlorhexidine Rinse 15 ML MOUTHWASH MM SCH (09:35)
[2020-11-01] MEDS ORDERED: Artificial Tears SOLN 15 ML BOTTLE BOTH EYES PRN (14:36)
[2020-11-01] MEDS ORDERED: Naloxone 0.4 MG/ML INJ IVP PRN (14:36)
[2020-11-01] MEDS ORDERED: Piperacillin/Tazobactam 3.375 GM in 0.9 % Sodium Chloride Mini Bag 100 ML IVPB SCH (16:00)
[2020-11-02 03:08] LABS: Basophils % 0.3 %; Eosinophils # 0.2 K/mcL (0.0-0.6); Eosinophils % 5.7 %; Hematocrit 33.9 % (35.3-44.9); Hemoglobin 10.1 g/dL (11.5-15.4); Immature Granulocytes % 0.3 % (0-4); Lymphocytes # 1.3 K/mcL (0.6-4.6); Lymphocytes % 35.7 %; Mean Corpuscular HGB Conc 29.8 g/dL (31.6-35.5); Mean Corpuscular Hemoglobin 24.6 pg (28.0-33.3); Mean Corpuscular Volume 82.7 fL (83.0-100.0); Mean Platelet Volume 11.1 fL (9.4-12.4); Monocytes # 0.4 K/mcL (0.0-1.3); Monocytes % 11.4 %; Neutrophils # 1.7 K/mcL (1.6-8.9); Platelet Count 143 K/mcL (140-400); Red Cell Distribution Width 15.9 % (11.5-14.5); Segmented Neutrophils % 46.6 %; White Blood Count 3.7 K/mcL (4.3-11.1)
[2020-11-02 03:10] LABS: VBG Ionized Calcium 1.17 mmol/L (1.15-1.35)
[2020-11-02 03:26] LABS: Alanine Aminotransferase 30 Units/L (7-52); Albumin 3.1 g/dL (3.5-5.7); Alkaline Phosphatase 105 Units/L (34-104); Aspartate Amino Transferase 33 Units/L (13-39); BUN/Creatinine Ratio 15 (6-26); Bilirubin,Direct 0.2 mg/dL (0.0-0.2); Bilirubin,Indirect 0.4 mg/dL (0.0-1.0); Bilirubin,Total 0.6 mg/dL (0.3-1.0); Blood Urea Nitrogen 13 mg/dL (6-20); Calcium 8.5 mg/dL (8.6-10.3); Carbon Dioxide 29 mEq/L (23-29); Chloride 104 mEq/L (98-107); Glucose 93 mg/dL (70-105); Magnesium 1.7 mg/dL (1.6-2.6); Osmolality,Calculated 286 (280-300); Phosphorous 4.2 mg/dL (2.7-4.5); Potassium 3.6 mEq/L (3.5-5.1); Sodium 138 mEq/L (136-145); Total Protein 6.1 g/dL (6.4-8.9); eGFR For African Americans > 60 (> 60); eGFR For Non-African Americans > 60 (> 60)
[2020-11-02] MEDS: Piperacillin/Tazobactam 3.375 GM in 0.9 % Sodium Chloride Mini Bag 100 ML IVPB SCH ×2 (03:42→11:53)
[2020-11-02] MEDS ORDERED: *HR* Enoxaparin 40 MG/0.4 ML SYRINGE SQ SCH (06:00)
[2020-11-02] MEDS ORDERED: Ipratropium/Albuterol Neb 3 ML IH PRN (07:31)
[2020-11-02] MEDS ORDERED: Pantoprazole 40 MG VIAL IVP SCH (09:00)
[2020-11-02 12:05] VITALS: BP 136/88
== END 2020-11-02 15:55 | disposition home or self-care (01) | DRG 917 ==
LOC: ICNU 20:22 → SUATTDRO 20:22 → 3ANU 11-01 16:13
PROVIDERS: ADMIT Pediatrics; ATTEND Family Medicine

== ENCOUNTER 2021-01-03 19:41 | Observation (INO) ==
[2021-01-03] MEDS ORDERED: 0.9 % Sodium Chloride 1,000 ML IVC ONE (22:08)
[2021-01-03 22:53] LABS: Basophils % 0.6 %; Hematocrit 35.4 % (35.3-44.9); Hemoglobin 10.7 g/dL (11.5-15.4); Immature Granulocytes % 0.4 % (0-4); Lymphocytes # 0.8 K/mcL (0.6-4.6); Lymphocytes % 15.4 %; Mean Corpuscular HGB Conc 30.2 g/dL (31.6-35.5); Mean Corpuscular Hemoglobin 24.7 pg (28.0-33.3); Mean Corpuscular Volume 81.8 fL (83.0-100.0); Mean Platelet Volume 11.3 fL (9.4-12.4); Monocytes # 0.6 K/mcL (0.0-1.3); Monocytes % 12.8 %; Neutrophils # 3.5 K/mcL (1.6-8.9); Platelet Count 217 K/mcL (140-400); Red Blood Count 4.33 M/mcL (3.82-4.97); Red Cell Distribution Width 17.1 % (11.5-14.5); Segmented Neutrophils % 70.8 %; White Blood Count 4.9 K/mcL (4.3-11.1)
[2021-01-03] MEDS ORDERED: Ondansetron 4 MG/2 ML VIAL IVP ONE (23:05)
[2021-01-03 23:21] LABS: Alanine Aminotransferase 46 Units/L (7-52); Albumin 3.8 g/dL (3.5-5.7); Alkaline Phosphatase 112 Units/L (34-104); Aspartate Amino Transferase 76 Units/L (13-39); BUN/Creatinine Ratio 12 (6-26); Bilirubin,Direct 0.2 mg/dL (0.0-0.2); Bilirubin,Indirect 0.7 mg/dL (0.0-1.0); Bilirubin,Total 0.9 mg/dL (0.3-1.0); Blood Urea Nitrogen 11 mg/dL (6-20); Calcium 8.8 mg/dL (8.6-10.3); Carbon Dioxide 34 mEq/L (23-29); Chloride 91 mEq/L (98-107); Globulin 3.7 g/dL (2.4-3.5); Glucose 101 mg/dL (70-105); Lipase 29 Units/L (11-82); Osmolality,Calculated 286 (280-300); Potassium 2.4 mEq/L (3.5-5.1); Sodium 138 mEq/L (136-145); Total Protein 7.5 g/dL (6.4-8.9); eGFR For African Americans > 60 (> 60); eGFR For Non-African Americans > 60 (> 60)
[2021-01-03] MEDS ORDERED: Potassium Chloride 40 MEQ, Lidocaine 1% 2 ML in 0.9 % Sodium Chloride 500 ML IVPB ONE (23:22)
[2021-01-03] MEDS ORDERED: Ondansetron ODT 4 MG TAB.RAPDIS SL ONE (23:38)
[2021-01-03 23:47] LABS: Magnesium 1.4 mg/dL (1.6-2.6)
[2021-01-04 00:41] LABS: Bacteria,Urine Few per hpf (None-Few); Bilirubin,Urine Negative (Negative); Blood,Urine Negative (Negative); Clarity,Urine Clear (Clear); Color,Urine Yellow (Yellow); Glucose,Urine (UA) Normal (Normal); Ketones,Urine 10 mg/dL (Negative); Leukocyte Esterase,Urine Negative (Negative); Mucus,Urine Few per lpf (None-Few); Nitrite,Urine Negative (Negative); PH,Urine 6.5 pH Units (5.0-8.0); Protein,Urine 70 mg/dL (Neg-Trace); Squamous Epithelial Cell,Urine Few per hpf (None-Few); WBC,Urine 0-3 per hpf (0-3)
[2021-01-04] MEDS ORDERED: Potassium Chloride Elixir 20 MEQ/15 ML UDC PO ONE ×3 (00:45→22:48)
[2021-01-04] MEDS ORDERED: *HR* Promethazine 25 MG/ML VIAL IM ONE (01:12)
[2021-01-04] MEDS ORDERED: Isovue-370 500 ML BOTTLE IVP ONE (02:37)
[2021-01-04] MEDS ORDERED: Ondansetron ODT 4 MG TAB.RAPDIS SL PRN (04:41)
[2021-01-04] MEDS ORDERED: *HR* Promethazine 25 MG/ML VIAL IM PRN (04:41)
[2021-01-04] MEDS ORDERED: Melatonin 3 MG TABLET PO PRN (04:41)
[2021-01-04] MEDS ORDERED: Naloxone 0.4 MG/ML INJ IVP PRN (04:41)
[2021-01-04 05:28] LABS: BUN/Creatinine Ratio 13 (6-26); Blood Urea Nitrogen 12 mg/dL (6-20); Calcium 8.8 mg/dL (8.6-10.3); Carbon Dioxide 33 mEq/L (23-29); Chloride 92 mEq/L (98-107); Glucose 112 mg/dL (70-105); Magnesium 1.5 mg/dL (1.6-2.6); Osmolality,Calculated 285 (280-300); Potassium 3.1 mEq/L (3.5-5.1); Sodium 137 mEq/L (136-145); eGFR For African Americans > 60 (> 60); eGFR For Non-African Americans > 60 (> 60)
[2021-01-04 07:15] LABS: Basophils % 0.5 %; Eosinophils % 0.5 %; Hematocrit 36.6 % (35.3-44.9); Immature Granulocytes % 0.4 % (0-4); Immature Platelets 11.6 % (1.1-6.1); Lymphocytes # 0.7 K/mcL (0.6-4.6); Lymphocytes % 13.3 %; Mean Corpuscular HGB Conc 30.1 g/dL (31.6-35.5); Mean Corpuscular Hemoglobin 24.7 pg (28.0-33.3); Mean Corpuscular Volume 82.1 fL (83.0-100.0); Monocytes # 0.5 K/mcL (0.0-1.3); Monocytes % 9.3 %; Neutrophils # 4.2 K/mcL (1.6-8.9); Platelet Count 130 K/mcL (140-400); Red Blood Count 4.46 M/mcL (3.82-4.97); Red Cell Distribution Width 17.2 % (11.5-14.5); White Blood Count 5.5 K/mcL (4.3-11.1)
[2021-01-04 07:59] LABS: Adenovirus Not Detected (Not Detect); Coronavirus 229E Not Detected (Not Detect); Coronavirus HKU1 Not Detected (Not Detect); Coronavirus NL63 Not Detected (Not Detect); Coronavirus OC43 Not Detected (Not Detect); Human Metapneumovirus Not Detected (Not Detect); Human Rhinovirus/Enterovirus Not Detected (Not Detect); SARS-CoV-2 Not Detected (Not Detect)
[2021-01-04 08:00] LABS: Bordetella Pertussis Not Detected (Not Detect); Chlamydophila pneumoniae Not Detected (Not Detect); Influenza A Subtype 2009 H1 Not Detected (Not Detect); Influenza B Not Detected (Not Detect); Mycoplasma pneumoniae Not Detected (Not Detect); Parainfluenza Virus 1 Not Detected (Not Detect); Parainfluenza Virus 2 Not Detected (Not Detect); Parainfluenza Virus 3 DETECTED (Not Detect); Parainfluenza Virus 4 Not Detected (Not Detect); Respiratory Syncytial Virus Not Detected (Not Detect)
[2021-01-04 12:37] LABS: BUN/Creatinine Ratio 15 (6-26); Blood Urea Nitrogen 11 mg/dL (6-20); Carbon Dioxide 28 mEq/L (23-29); Chloride 104 mEq/L (98-107); Glucose 92 mg/dL (70-105); Osmolality,Calculated 287 (280-300); Potassium 2.4 mEq/L (3.5-5.1); Sodium 139 mEq/L (136-145); eGFR For African Americans > 60 (> 60); eGFR For Non-African Americans > 60 (> 60)
[2021-01-04 14:27] LABS: Alanine Aminotransferase 36 Units/L (7-52); Albumin/Globulin Ratio 1.1 (1.1-2.2); Alkaline Phosphatase 85 Units/L (34-104); Aspartate Amino Transferase 67 Units/L (13-39); Bilirubin,Direct 0.3 mg/dL (0.0-0.2); Bilirubin,Indirect 0.4 mg/dL (0.0-1.0); Bilirubin,Total 0.7 mg/dL (0.3-1.0); Globulin 2.7 g/dL (2.4-3.5); Total Protein 5.7 g/dL (6.4-8.9)
[2021-01-04] MEDS ORDERED: Potassium Chloride 40 MEQ, Lidocaine 1% 2 ML in 0.9 % Sodium Chloride 500 ML IVPB ONE (14:33)
[2021-01-04 14:54] LABS: INR 1.2; Prothrombin Time 14.2 Seconds (9.4-12.1)
[2021-01-04 15:08] LABS: Albumin 3.8 g/dL (3.5-5.7); Albumin/Globulin Ratio 1.1 (1.1-2.2); Bilirubin,Direct 0.3 mg/dL (0.0-0.2); Bilirubin,Indirect 0.7 mg/dL (0.0-1.0); Globulin 3.5 g/dL (2.4-3.5); Total Protein 7.3 g/dL (6.4-8.9)
[2021-01-04] MEDS: Acetaminophen 325 MG TABLET PO PRN ×2 (15:49→23:19)
[2021-01-04 22:44] LABS: BUN/Creatinine Ratio 15 (6-26); Blood Urea Nitrogen 15 mg/dL (6-20); Calcium 8.6 mg/dL (8.6-10.3); Carbon Dioxide 31 mEq/L (23-29); Chloride 98 mEq/L (98-107); Glucose 104 mg/dL (70-105); Osmolality,Calculated 285 (280-300); Potassium 3.3 mEq/L (3.5-5.1); Sodium 137 mEq/L (136-145); eGFR For African Americans > 60 (> 60); eGFR For Non-African Americans > 60 (> 60)
[2021-01-05] MEDS ORDERED: Ketorolac 30 MG/ML VIAL IVP ONE (05:14)
[2021-01-05 06:04] LABS: Basophils % 0.4 %; Eosinophils % 0.9 %; Hematocrit 35.3 % (35.3-44.9); Hemoglobin 10.3 g/dL (11.5-15.4); Immature Granulocytes % 0.4 % (0-4); Lymphocytes % 21.3 %; Mean Corpuscular HGB Conc 29.2 g/dL (31.6-35.5); Mean Corpuscular Hemoglobin 24.4 pg (28.0-33.3); Mean Corpuscular Volume 83.6 fL (83.0-100.0); Mean Platelet Volume 11.7 fL (9.4-12.4); Monocytes # 0.4 K/mcL (0.0-1.3); Monocytes % 7.7 %; Neutrophils # 3.2 K/mcL (1.6-8.9); Platelet Count 198 K/mcL (140-400); Red Blood Count 4.22 M/mcL (3.82-4.97); Red Cell Distribution Width 17.2 % (11.5-14.5); Segmented Neutrophils % 69.3 %; White Blood Count 4.6 K/mcL (4.3-11.1)
[2021-01-05 06:17] LABS: INR 1.3; Prothrombin Time 14.4 Seconds (9.4-12.1)
[2021-01-05 06:26] LABS: Alanine Aminotransferase 54 Units/L (7-52); Albumin 3.6 g/dL (3.5-5.7); Albumin/Globulin Ratio 1.1 (1.1-2.2); Alkaline Phosphatase 107 Units/L (34-104); Aspartate Amino Transferase 133 Units/L (13-39); BUN/Creatinine Ratio 18 (6-26); Blood Urea Nitrogen 17 mg/dL (6-20); Calcium 8.6 mg/dL (8.6-10.3); Carbon Dioxide 31 mEq/L (23-29); Chloride 98 mEq/L (98-107); Globulin 3.3 g/dL (2.4-3.5); Glucose 95 mg/dL (70-105); Magnesium 2.1 mg/dL (1.6-2.6); Osmolality,Calculated 287 (280-300); Potassium 3.5 mEq/L (3.5-5.1); Sodium 138 mEq/L (136-145); Total Protein 6.9 g/dL (6.4-8.9); eGFR For African Americans > 60 (> 60); eGFR For Non-African Americans > 60 (> 60)
[2021-01-05 07:51] VITALS: BP 123/88
== END 2021-01-05 17:26 | disposition home or self-care (01) ==
LOC: 3ANU 19:41 → EMEROOARM 19:41 → 3ANU 01-04 05:38
PROVIDERS: ADMIT Internal Medicine; ATTEND Internal Medicine

== ENCOUNTER 2021-01-06 20:20 | Observation (INO) ==
[2021-01-06] MEDS ORDERED: Levalbuterol Neb 1.25 MG/3 ML ONE (20:24)
[2021-01-06] MEDS ORDERED: Levalbuterol Neb 1.25 MG/3 ML AER ONE (20:26)
[2021-01-06 20:55] LABS: Basophils % 0.7 %; Eosinophils # 0.1 K/mcL (0.0-0.6); Eosinophils % 2.1 %; Hematocrit 36.6 % (35.3-44.9); Hemoglobin 10.8 g/dL (11.5-15.4); Immature Granulocytes % 0.7 % (0-4); Lymphocytes # 1.6 K/mcL (0.6-4.6); Lymphocytes % 27.5 %; Mean Corpuscular HGB Conc 29.5 g/dL (31.6-35.5); Mean Corpuscular Hemoglobin 24.3 pg (28.0-33.3); Mean Corpuscular Volume 82.4 fL (83.0-100.0); Mean Platelet Volume 12.3 fL (9.4-12.4); Monocytes # 0.5 K/mcL (0.0-1.3); Monocytes % 9.2 %; Neutrophils # 3.4 K/mcL (1.6-8.9); Platelet Count 212 K/mcL (140-400); Red Blood Count 4.44 M/mcL (3.82-4.97); Red Cell Distribution Width 17.3 % (11.5-14.5); Segmented Neutrophils % 59.8 %; White Blood Count 5.7 K/mcL (4.3-11.1)
[2021-01-06 21:18] LABS: INR 1.3; Prothrombin Time 14.9 Seconds (9.4-12.1)
[2021-01-06 21:22] LABS: Activated Partial Thrombo Time 20.8 Seconds (26.0-36.0)
[2021-01-06 21:23] LABS: Alanine Aminotransferase 74 Units/L (7-52); Albumin/Globulin Ratio 1.1 (1.1-2.2); Alkaline Phosphatase 105 Units/L (34-104); Aspartate Amino Transferase 164 Units/L (13-39); BUN/Creatinine Ratio 12 (6-26); Bilirubin,Direct 0.1 mg/dL (0.0-0.2); Bilirubin,Indirect 0.7 mg/dL (0.0-1.0); Bilirubin,Total 0.8 mg/dL (0.3-1.0); Blood Urea Nitrogen 14 mg/dL (6-20); Calcium 8.9 mg/dL (8.6-10.3); Carbon Dioxide 26 mEq/L (23-29); Chloride 97 mEq/L (98-107); Globulin 3.7 g/dL (2.4-3.5); Glucose 114 mg/dL (70-105); Osmolality,Calculated 283 (280-300); Potassium 3.4 mEq/L (3.5-5.1); Sodium 136 mEq/L (136-145); Total Protein 7.7 g/dL (6.4-8.9); eGFR For African Americans > 60 (> 60); eGFR For Non-African Americans 51 (> 60)
[2021-01-06 21:25] LABS: Anisocytosis 1+ (Not Present)
[2021-01-06 21:26] LABS: Platelet Estimate Normal (Normal); Reactive Lymphocytes Present (Not Present)
[2021-01-06 21:32] LABS: Troponin I 0.08 ng/mL (< 0.04)
[2021-01-06 21:42] LABS: VBG HCO3 28 mEq/L (21-27); VBG PCO2 42 mmHg (41-51); VBG PH 7.44 pH Units (7.32-7.42); VBG PO2 55 mmHg (25-50)
[2021-01-06] MEDS ORDERED: 0.9 % Sodium Chloride 1,000 ML IVC ONE (21:58)
[2021-01-06] MEDS ORDERED: cefTRIAXone 1,000 MG in Water for inj. (sterile) 10 ML IVP ONE (22:01)
[2021-01-06] MEDS ORDERED: CefTRIAXone 1,000 MG VIAL ONE (22:24)
[2021-01-06] MEDS ORDERED: Water for inj. (sterile) 10 ML ONE (22:25)
[2021-01-06] MEDS ORDERED: 0.9 % Sodium Chloride 1,000 ML ONE (22:25)
[2021-01-06] MEDS ORDERED: Acetaminophen 325 MG TABLET PO PRN (22:55)
[2021-01-06] MEDS ORDERED: Naloxone 0.4 MG/ML INJ IVP PRN (22:55)
[2021-01-06] MEDS ORDERED: 0.9 % Sodium Chloride 1,000 ML IVC SCH (23:00)
[2021-01-07 01:54] LABS: Hematocrit 32.9 % (35.3-44.9); Hemoglobin 9.8 g/dL (11.5-15.4); Mean Corpuscular HGB Conc 29.8 g/dL (31.6-35.5); Mean Corpuscular Hemoglobin 24.4 pg (28.0-33.3); Mean Corpuscular Volume 81.8 fL (83.0-100.0); Mean Platelet Volume 11.1 fL (9.4-12.4); Platelet Count 195 K/mcL (140-400); Red Blood Count 4.02 M/mcL (3.82-4.97); Red Cell Distribution Width 17.2 % (11.5-14.5); White Blood Count 5.3 K/mcL (4.3-11.1)
[2021-01-07] MEDS ORDERED: *HR* Metoprolol 5 MG/5 ML VIAL IVP ONE ×2 (02:10→02:15)
[2021-01-07 02:11] LABS: BUN/Creatinine Ratio 13 (6-26); Blood Urea Nitrogen 13 mg/dL (6-20); Calcium 8.3 mg/dL (8.6-10.3); Carbon Dioxide 26 mEq/L (23-29); Chloride 98 mEq/L (98-107); Glucose 95 mg/dL (70-105); Osmolality,Calculated 280 (280-300); Potassium 2.9 mEq/L (3.5-5.1); Sodium 135 mEq/L (136-145); eGFR For African Americans > 60 (> 60); eGFR For Non-African Americans > 60 (> 60)
[2021-01-07] MEDS ORDERED: Perflutren Lipid Microsphere 1.3 ML in 0.9 % Sodium Chloride 8.7 ML IVP PRN (02:12)
[2021-01-07] MEDS: Ipratropium 1 PUFF INHALER IH SCH ×4 (04:20→15:29)
[2021-01-07] MEDS: Levalbuterol Neb 1.25 MG/3 ML IH SCH ×4 (04:33→22:02)
[2021-01-07] MEDS ORDERED: Isovue-370 500 ML BOTTLE IVP ONE (05:14)
[2021-01-07] MEDS ORDERED: MethylPREDNISolone 40 MG/ML VIAL IVP ONE (05:24)
[2021-01-07] MEDS ORDERED: Piperacillin/Tazobactam 3.375 GM in 0.9 % Sodium Chloride Mini Bag 100 ML IVPB SCH (08:00)
[2021-01-07] MEDS: *HR* Acetylcysteine 20% 600 MG/3 ML ORAL SYRINGE PO SCH ×2 (09:26→20:41)
[2021-01-07] MEDS ORDERED: *HR* Enoxaparin 40 MG/0.4 ML SYRINGE SQ SCH (14:29)
[2021-01-07 17:38] LABS: BUN/Creatinine Ratio 16 (6-26); Blood Urea Nitrogen 14 mg/dL (6-20); Calcium 8.6 mg/dL (8.6-10.3); Carbon Dioxide 28 mEq/L (23-29); Chloride 99 mEq/L (98-107); Glucose 116 mg/dL (70-105); Osmolality,Calculated 279 (280-300); Potassium 3.6 mEq/L (3.5-5.1); Sodium 134 mEq/L (136-145); eGFR For African Americans > 60 (> 60); eGFR For Non-African Americans > 60 (> 60)
[2021-01-07] MEDS: Doxycycline 100 MG in 0.9 % Sodium Chloride Mini Bag 100 ML IVPB SCH (17:56)
[2021-01-07] MEDS: *HR* Heparin 5,000 UNIT/ML VIAL SQ SCH (17:56)
[2021-01-07] MEDS: MethylPREDNISolone 40 MG/ML VIAL IVP SCH (18:01)
[2021-01-07] MEDS ORDERED: cefTRIAXone 1,000 MG in Water for inj. (sterile) 10 ML IVP SCH (22:00)
[2021-01-08 03:01] LABS: Basophils % 0.2 %; Hematocrit 32.6 % (35.3-44.9); Hemoglobin 9.8 g/dL (11.5-15.4); Immature Granulocytes % 0.8 % (0-4); Lymphocytes # 0.9 K/mcL (0.6-4.6); Lymphocytes % 17.2 %; Mean Corpuscular HGB Conc 30.1 g/dL (31.6-35.5); Mean Corpuscular Hemoglobin 24.7 pg (28.0-33.3); Mean Corpuscular Volume 82.3 fL (83.0-100.0); Mean Platelet Volume 11.3 fL (9.4-12.4); Monocytes # 0.2 K/mcL (0.0-1.3); Monocytes % 3.7 %; Platelet Count 193 K/mcL (140-400); Red Blood Count 3.96 M/mcL (3.82-4.97); Segmented Neutrophils % 78.1 %; White Blood Count 5.1 K/mcL (4.3-11.1)
[2021-01-08 03:18] LABS: BUN/Creatinine Ratio 19 (6-26); Blood Urea Nitrogen 16 mg/dL (6-20); Calcium 8.6 mg/dL (8.6-10.3); Carbon Dioxide 27 mEq/L (23-29); Chloride 98 mEq/L (98-107); Glucose 158 mg/dL (70-105); Osmolality,Calculated 288 (280-300); Potassium 3.4 mEq/L (3.5-5.1); Sodium 137 mEq/L (136-145); eGFR For African Americans > 60 (> 60); eGFR For Non-African Americans > 60 (> 60)
[2021-01-08] MEDS: Levalbuterol Neb 1.25 MG/3 ML IH SCH ×2 (03:25→10:55)
[2021-01-08] MEDS: MethylPREDNISolone 40 MG/ML VIAL IVP SCH (06:03)
[2021-01-08] MEDS: Doxycycline 100 MG in 0.9 % Sodium Chloride Mini Bag 100 ML IVPB SCH (06:04)
[2021-01-08] MEDS: *HR* Heparin 5,000 UNIT/ML VIAL SQ SCH ×2 (06:05→16:25)
[2021-01-08] MEDS: *HR* Acetylcysteine 20% 600 MG/3 ML ORAL SYRINGE PO SCH (09:47)
[2021-01-08] MEDS ORDERED: Bumetanide 1 MG TABLET PO ONE (11:44)
[2021-01-08] MEDS ORDERED: Metoprolol XL (24 HR) Succ 50 MG TAB.ER.24H PO SCH ×2 (12:45→13:00)
[2021-01-08] MEDS ORDERED: *HR* Metoprolol 5 MG/5 ML VIAL IVP ONE (12:54)
[2021-01-08] MEDS ORDERED: *HR* LORazepam 2 MG/ML VIAL IVP PRN (12:57)
[2021-01-08] MEDS ORDERED: Bumetanide 1 MG TABLET PO SCH (17:00)
[2021-01-08] MEDS: Doxycycline 100 MG CAPSULE PO SCH (20:00)
[2021-01-08] MEDS: Cefdinir 300 MG CAPSULE PO SCH (20:00)
[2021-01-08] MEDS ORDERED: Menthol 1 EACH LOZENGE PO PRN (21:33)
[2021-01-09] MEDS ORDERED: Ondansetron 4 MG/2 ML VIAL IVP PRN (01:35)
[2021-01-09] MEDS: *HR* Heparin 5,000 UNIT/ML VIAL SQ SCH (05:52)
[2021-01-09 06:24] VITALS: BP 136/91
[2021-01-09 07:10] LABS: Basophils % 0.2 %; Eosinophils % 0.3 %; Hemoglobin 10.6 g/dL (11.5-15.4); Immature Granulocytes % 0.5 % (0-4); Lymphocytes % 34.2 %; Mean Corpuscular HGB Conc 30.3 g/dL (31.6-35.5); Mean Corpuscular Hemoglobin 24.7 pg (28.0-33.3); Mean Corpuscular Volume 81.4 fL (83.0-100.0); Mean Platelet Volume 12.1 fL (9.4-12.4); Monocytes # 0.8 K/mcL (0.0-1.3); Monocytes % 5.9 %; Neutrophils # 7.5 K/mcL (1.6-8.9); Nucleated Red Blood Cells 0.2 /100 WBC (0); Platelet Count 316 K/mcL (140-400); Red Cell Distribution Width 17.4 % (11.5-14.5); Segmented Neutrophils % 58.9 %
[2021-01-09 07:31] LABS: BUN/Creatinine Ratio 23 (6-26); Blood Urea Nitrogen 23 mg/dL (6-20); Calcium 9.2 mg/dL (8.6-10.3); Carbon Dioxide 25 mEq/L (23-29); Chloride 102 mEq/L (98-107); Glucose 94 mg/dL (70-105); Osmolality,Calculated 287 (280-300); Potassium 3.4 mEq/L (3.5-5.1); Sodium 137 mEq/L (136-145); eGFR For African Americans > 60 (> 60); eGFR For Non-African Americans 59 (> 60)
[2021-01-09 07:58] LABS: Lymphocytes # 4.3 K/mcL (0.6-4.6); White Blood Count 12.7 K/mcL (4.3-11.1)
[2021-01-09] MEDS ORDERED: *HR* Metoprolol 5 MG/5 ML VIAL IVP PRN (07:59)
[2021-01-09] MEDS ORDERED: Metoprolol XL (24 HR) Succ 25 MG TAB.ER.24H PO SCH (07:59)
[2021-01-09 08:37] LABS: Platelet Estimate Normal (Normal); Reactive Lymphocytes Present (Not Present)
[2021-01-09] MEDS: Doxycycline 100 MG CAPSULE PO SCH (08:41)
[2021-01-09] MEDS: Cefdinir 300 MG CAPSULE PO SCH (08:42)
[2021-01-09] MEDS ORDERED: Bumetanide 1 MG TABLET PO SCH (09:00)
[2021-01-09] MEDS ORDERED: predniSONE 20 MG TABLET PO SCH (09:00)
== END 2021-01-09 11:57 | disposition home or self-care (01) ==
LOC: 2NENU 20:20 → EMEROOARM 20:20 → SUATTDRO 22:41 → 2NENU 01-07 00:02
PROVIDERS: ADMIT Student in an Organized Health Care Education/Training Program; ATTEND Student in an Organized Health Care Education/Training Program